=== PATIENT | female | born 1940 | race Caucasian/White ===

== ENCOUNTER 2018-07-30 07:54 | Emergency (ER) | payer OTHER, SELFPAY ==
--- NOTE | 2018-07-30 08:01 | DI.CT.S_ITS ---
PROCEDURE: CT HEAD/BRAIN WO CON INDICATIONS: code stroke speech difficulty tpa TECHNIQUE: Noncontrast 4.5 mm thick angled axial sections acquired from the foramen magnum to the vertex, with coronal and sagittal reformats. For radiation dose reduction, the following was used: automated exposure control, adjustment of mA and/or kV according to patient size. COMPARISON: None. FINDINGS: Image quality: Excellent. CSF spaces: Basal cisterns are patent. No extra-axial fluid collections. The ventricles are symmetric in size and shape. Brain: No intracranial bleeds or masses. There is cerebral volume loss for age, with resultant ventricular and sulcal prominence. There are periventricular and deep white matter chronic small vessel ischemic changes. There is intracranial internal carotid artery atherosclerosis. Skull and face: Calvarium and visualized facial bones appear intact, without suspicious lesions. Sinuses: Visualized sinuses and mastoids are clear. IMPRESSION: No CT evidence of acute intracranial pathology. Findings were reported to Dr. Feliz in the ER at 8:15 AM on 07/30/18. Dictated by: Krzysztof Sinha M.D. on 07/30/2018 at 8:14 Approved by: Krzysztof Sinha M.D. on 07/30/2018 at 8:15
--- NOTE | 2018-07-30 08:06 | ED.NEUROSD ---
HPI - Neuro Symptoms/Deficit General Chief Complaint: Neuro Symptoms/Deficit Stated Complaint: difficulty speaking Time Seen by Provider: 07/30/18 08:01 Source: patient and family Mode of arrival: wheelchair Limitations: no limitations History of Present Illness HPI Narrative: Patient is a 77-year-old female presenting with her who is having difficulty speaking. She was at the breakfast table at 7:30 a.m. in the morning when she was normal and suddenly started talking about Tiffany takes on her speech got slurred. states that his speech actually improved briefly and then got worse again at which point she was brought to the ER. She was able to walk in but felt dizzy and lightheaded and needed some help. She continues to have some slurring of speech but no other focal deficits. She has never had anything like this happen in the past. She does have a history of hypertension and takes hydrochlorothiazide. Last Observed Normal: 07:30 Timing confirmed by: spouse Location: speech History of same: No Severity: mild Context: sudden onset Associated symptoms: denies other symptoms Treatments Prior to Arrival: none Related Data Home Medications Medication Instructions Recorded Confirmed OMEPRAZOLE (PRILOSEC) 10 mg PO QDAY #0 10/06/11 levothyroxine [Synthroid] 75 mcg PO QDAY #0 10/06/11 Allergies Allergy/AdvReac Type Severity Reaction Status Date / Time adhesive Allergy Unknown Unverified 08/10/17 11:44 Review of Systems Review of Systems ROS Unobtainable: All systems reviewed & are unremarkable except as noted in HPI and below Constitutional Denies chills, Denies fever(s), Denies lethargy and Denies weakness Eyes Denies change in vision, Denies eye discharge, Denies irritation and Denies loss of vision ENT Ears, Nose, Mouth, and Throat: Denies change in voice, Denies neck pain and Denies sore throat Cardiovascular Denies chest pain, Denies irregular heart rhythm, Denies lightheadedness, Denies palpitations, Denies dyspnea, Denies dyspnea on exertion and Denies orthopnea Respiratory Denies cough, Denies dyspnea, Denies dyspnea on exertion and Denies wheezing Gastrointestinal Gastrointestinal: Denies abdominal pain, Denies change in bowel habits, Denies diarrhea, Denies nausea and Denies vomiting Genitourinary Denies hematuria, Denies flank pain, Denies urinary incontinence and Denies urinary urgency Musculoskeletal Denies neck pain Integumentary/Breasts Denies pruritus, Denies erythema, Denies rash and Denies wounds Neurologic Reports as per HPI, Denies loss of vision and Denies weakness Endocrine Denies palpitations Allergic/Immunologic Denies wheezing [facility] Medical History Hypertension (Acute) Hypothyroid (Acute) Social History (Updated 07/30/18 @ 08:45 by Crista Feliz DO) marital status: lives independently: Yes Social History marital status: lives independently: Yes Exam Initial Vital Signs Initial Vital Signs: Vital Signs Pulse Rate 75 07/30/18 08:33 Blood Pressure 190/89 H 07/30/18 08:33 Const General: cooperative and well developed Nutritional Appearance: well nourished Orientation: alert, awake, oriented x3 and not confused HENMT Head: normal to inspection and normocephalic Eyes General: appearance normal, both eyes and all related structures Neck Neck: normal visual inspection and full ROM Chest Chest: normal inspection of the chest Resp Effort & Inspection: normal respiratory effort and able to speak in complete sentences Auscultation: clear to auscultation bilaterally, no rhonchi and no wheezes Cardio Rate: regular rate Rhythm: regular rhythm Heart Sounds: S1 normal and S2 normal GI Inspection: normal to inspection Palpation: soft Skin General: no rashes or lesions noted Neuro General: alert, awake, oriented x3, CN's II-XI intact bilaterally and not confused Cognition: normal cognition Speech: abnormal speech (Slurring) Motor: muscle tone normal throughout Sensory Exam: no sensory deficits noted Extrem General: normal to inspection and full ROM Scores NIH Stroke Scale Level of Conciousness: Alert, keenly responsive Ask month/age: Answers both questions correctly. Open/close eyes, close hand: Performs both tasks correctly Best gaze horizontal: Normal Visual roman: No visual loss Facial palsy: Normal symetrical movement Left arm drift: No drift for full 10 sec Right arm drift: No drift for full 10 sec Left leg drift: No drift for full 10 sec Right leg drift: No drift for full 10 sec Limb ataxia: Absent Sensory on face/arms/legs: Normal, no sensory loss Best language: No aphasia, normal Dysarthria: Mild to mod,some slurring Extinction or inattention: No abnormality Total NIH Stroke scale score: 1 Course Orders Ordered: ED Orders 07/30/18 08:01 CT head/brain wo con Stat EKG-12 Lead Stat 07/30/18 08:10 Complete Blood Count AUTO DIFF Stat Comprehensive Metabolic Panel Stat Partial Thromboplastin Time Stat Prothrombin Time INR Stat Troponin & CK Cardiac Panel Stat 07/30/18 08:36 CT angio head and neck Stat 07/30/18 08:46 Urine Culture Stat Urine Microscopic Stat Discontinued Medications Alteplase, Recombinant (Activase) 7 mg 0.09 mg/kg (7 mg) IV NOW ONE Stop: 07/30/18 08:44 Alteplase, Recombinant (Activase) 61 mg 0.81 mg/kg (61 mg) IV NOW ONE Stop: 07/30/18 08:49 Sodium Chloride (Normal Saline 0.9%) 1,000 mls @ 150 mls/hr IV CONT JORGE A Last Admin: 07/30/18 10:12 Dose: Not Given Labetalol HCl (Trandate) 10 mg IV NOW ONE Stop: 07/30/18 08:37 Last Admin: 07/30/18 08:33 Dose: 10 mg Consultations Consultation #1: Dr. Salvador Yang, Neurology at [facility] consult today in regards to tPA. She has a low NIH stroke scale symptoms are waxing and waning. He did a teleconference with the patient. At this time he did recommend tPA. Consultation #2: Dr. Mccall Neurol[facility] as [facility] accepts patient for transfer. Awaiting CTA results Time: 09:08 Vital Signs - 8 hr 07/30/18 08:33 07/30/18 10:39 07/30/18 11:07 Pulse Rate 75 63 69 Respiratory Rate 15 Blood Pressure 190/89 H 161/81 H 156/80 H Pulse Oximetry 98 MDM - Neuro Symptoms/Deficit Lab Data Attestation: I reviewed the patient's lab results. Result diagrams: 07/30/18 08:10 07/30/18 08:10 Lab Results 07/30/18 07/30/18 07/30/18 Range/Units 08:10 08:10 08:10 WBC 7.0 (4.5-11.0) X10^3/uL RBC 5.04 (4.0-5.2) X10^6/uL Hgb 15.8 (12.0-16.0) g/dL Hct 46.2 H (36-46) % MCV 91.5 (80-100) fL MCH 31.3 (26-34) PG MCHC 34.2 (30-36) % RDW 14.1 (11.6-14.8) % Plt Count 292 (150-400) X10^3/uL Neut % (Auto) 59.1 (50-75) % Lymph % (Auto) 27.4 (25-40) % [place] % (Auto) 10.8 (3-14) % Eos % (Auto) 1.6 L (2-4) % Baso % (Auto) 1.1 (0-2) % Neut # (Auto) 4100 (2297-6251) /uL Lymph # (Auto) 1900 (1760-8588) /uL [place] # (Auto) 800 (0-900) /uL Eos # (Auto) 100 (0-450) /uL Baso # (Auto) 100 (0-100) /uL PT 10.9 (10.1-12.7) SECONDS INR 1.0 (0.9-1.3) APTT 29 (26.4-36.2) SECONDS Sodium 138 (137-145) mmol/L Potassium 3.7 (3.4-5.1) mmol/L Chloride 101 (98-107) mmol/L Carbon Dioxide 28 (22-32) mmol/L BUN 13 (7-17) mg/dL Creatinine 0.60 (0.52-1.04) mg/dL Estimated GFR > 60.0 (>60) mL/min BUN/Creatinine Ratio 21.7 (6-22) Glucose 89 (80-110) mg/dL Calcium 9.3 (8.4-10.2) mg/dL Total Bilirubin 0.6 (0.2-1.3) mg/dL AST 27 (14-36) IU/L ALT 24 (9-52) IU/L Alkaline Phosphatase 135 H (38-126) U/L Total Creatine Kinase 164 H (30-135) U/L CK-MB (CK-2) 2.71 H (<2.37) ng/mL CK-MB (CK-2) Rel Index 1.7 (1.5-5.0) % Troponin I < 0.012 (0.01-0.034) ng/mL Total Protein 7.2 (6.3-8.2) g/dL Albumin 4.2 (3.5-5.0) g/dL Globulin 3.0 (1.7-4.1) g/dL Albumin/Globulin Ratio 1.4 (1.0-2.8) Urine RBC (0-5/HPF) Urine WBC (0-5/HPF) Urine Bacteria (None) Ur Culture Indicated? 07/30/18 Range/Units 08:46 WBC (4.5-11.0) X10^3/uL RBC (4.0-5.2) X10^6/uL Hgb (12.0-16.0) g/dL Hct (36-46) % MCV (80-100) fL MCH (26-34) PG MCHC (30-36) % RDW (11.6-14.8) % Plt Count (150-400) X10^3/uL Neut % (Auto) (50-75) % Lymph % (Auto) (25-40) % [place] % (Auto) (3-14) % Eos % (Auto) (2-4) % Baso % (Auto) (0-2) % Neut # (Auto) (9239-8315) /uL Lymph # (Auto) (6714-1651) /uL [place] # (Auto) (0-900) /uL Eos # (Auto) (0-450) /uL Baso # (Auto) (0-100) /uL PT (10.1-12.7) SECONDS INR (0.9-1.3) APTT (26.4-36.2) SECONDS Sodium (137-145) mmol/L Potassium (3.4-5.1) mmol/L Chloride (98-107) mmol/L Carbon Dioxide (22-32) mmol/L BUN (7-17) mg/dL Creatinine (0.52-1.04) mg/dL Estimated GFR (>60) mL/min BUN/Creatinine Ratio (6-22) Glucose (80-110) mg/dL Calcium (8.4-10.2) mg/dL Total Bilirubin (0.2-1.3) mg/dL AST (14-36) IU/L ALT (9-52) IU/L Alkaline Phosphatase (38-126) U/L Total Creatine Kinase (30-135) U/L CK-MB (CK-2) (<2.37) ng/mL CK-MB (CK-2) Rel Index (1.5-5.0) % Troponin I (0.01-0.034) ng/mL Total Protein (6.3-8.2) g/dL Albumin (3.5-5.0) g/dL Globulin (1.7-4.1) g/dL Albumin/Globulin Ratio (1.0-2.8) Urine RBC None seen (0-5/HPF) Urine WBC 5-10/hpf H (0-5/HPF) Urine Bacteria Many (>30) H (None) Ur Culture Indicated? Specimen cultured Point of Care Testing Glucose POC 87 Urine Dip Bedside Urine Glucose Negative Bedside Urine Bilirubin - Negative Bedside Urine Ketone - Negative Urine Specific [place] 1.015 Bedside Urine Occult Blood +/- Bedside Urine pH 7.5 Bedside Urine Protein - Negative Bedside Urine Urobilinogen - Negative Bedside Urine Nitrite - Negative Bedside Urine Leukocytes +++ [address] scan - head: Radiologist's impression: PROCEDURE: CT HEAD/BRAIN WO CON INDICATIONS: code stroke speech difficulty tpa TECHNIQUE: Noncontrast 4.5 mm thick angled axial sections acquired from the foramen magnum to the vertex, with coronal and sagittal reformats. For radiation dose reduction, the following was used: automated exposure control, adjustment of mA and/or kV according to patient size. COMPARISON: None. FINDINGS: Image quality: Excellent. CSF spaces: Basal cisterns are patent. No extra-axial fluid collections. The ventricles are symmetric in size and shape. Brain: No intracranial bleeds or masses. There is cerebral volume loss for age, with resultant ventricular and sulcal prominence. There are periventricular and deep white matter chronic small vessel ischemic changes. There is intracranial internal carotid artery atherosclerosis. Skull and face: Calvarium and visualized facial bones appear intact, without suspicious lesions. Sinuses: Visualized sinuses and mastoids are clear. IMPRESSION: No CT evidence of acute intracranial pathology. Findings were reported to Dr. Feliz in the ER at 8:15 AM on 07/30/18. Dictated by: Krzysztof Sinha M.D. on 07/30/2018 at 8:14 Approved by: Krzysztof Sinha M.D. on 07/30/2018 at 8:15 CTA: Radiologist's impression: PROCEDURE: CT ANGIO HEAD AND NECK INDICATIONS: per maltese speech trouble got tpa TECHNIQUE: Pre-contrast 4.5 mm thick sections acquired from the foramen magnum to the vertex. After the administration of intravenous contrast, 1 mm thick sections acquired from the aortic arch through the [place]. Post-contrast 4.5 mm thick sections then re-acquired from the foramen magnum to the vertex. 3-dimensional egvhhal-gnxwaxdtk-ritihkgpva (MIP) and/or volume rendering reformats were acquired of the central intracranial vasculature and neck separately. COMPARISON: Merged With [facility], CT, CT HEAD/BRAIN WO CON, 07/30/2018, 8:03. FINDINGS: Image quality: Excellent. BRAIN: CSF spaces: Ventricles are normal in size and shape. Basal cisterns are patent. No extra-axial fluid collections. Brain: No midline shift. Age-appropriate atrophy and mild to moderate periventricular white matter chronic ischemic moderate neuropathic changes are again seen. No intracranial bleeds or masses. Junior-white matter interface appears intact. No area of abnormal contrast enhancement Skull and face: Calvarium and facial bones appear intact, without suspicious lesions. Orbits appear normal. Sinuses: Sinuses and mastoids are clear. HEAD CT ANGIOGRAPHY: Anterior circulation: Intracranial internal carotid arteries are normal in size and flow. The flow within the paired anterior cerebral arteries is normal and symmetric. The flow within the middle cerebral arteries is normal and symmetric. The anterior communicating artery is seen. No aneurysms are seen. Posterior circulation: Visualized portions of the vertebral arteries demonstrate normal caliber, and join to form a normal appearing basilar artery. Flow within the posterior cerebral arteries is normal and symmetric. No aneurysms are seen. NECK CT ANGIOGRAPHY: Carotid system: The great vessels demonstrate a conventional anatomy as they arise from the aortic arch. The origins of the common carotid arteries appear patent. The common carotid arteries demonstrate normal caliber and courses. The bifurcation regions are both widely patent. The internal carotid arteries demonstrate normal calibers and courses. Posterior circulation: The origins of the vertebral arteries both appear widely patent. The more superior extracranial portions of both vertebral arteries also demonstrate normal courses and calibers. They join to form a normal appearing basilar artery. Soft tissues: Visualized neck soft tissues demonstrate no suspicious abnormalities. Bones: No suspicious bony lesions. Visualized cervical spine appears normally aligned. IMPRESSION: 1. No CT evidence of acute intracranial bleed, midline shift or mass effect. No gross evidence of acute infarction. No area of abnormal contrast enhancement. Age-appropriate atrophy and mild to moderate periventricular white matter microangiopathic changes. #2. No hemodynamically significant stenosis or aneurysm is seen in the intracranial circulation. #3. No significant stenosis is seen in bilateral carotid arteries. Any quantitative measurements of stenosis were performed using NASCET criteria. Dictated by: Krzysztof Sinha M.D. on 07/30/2018 at 9:34 ECG Data Attestation: I personally reviewed and interpreted this ECG as follows: Prior ECG tracings: available for review Interpretation: Normal sinus rhythm rate 77 DE interval [address] changes slight ST depression noted in V3 no T-wave inversions MDM Narrative Medical decision making narrative: Discussed risks and benefits with both patient and . They agree to tPA. Consent is signed. tPA [id number] tPA [id number] tPA Contraindications for Ischemic Stroke from [employer] on 07/30/2018 All calculations should be rechecked by clinician prior to use RESULT SUMMARY: Patient eligible for tPA. INPUTS: Age ?16 ?> 1 = Yes Clinical diagnosis of ischemic stroke causing neurological deficit ?> 1 = Yes Time of symptom onset <4.5 hours ?> 1 = Yes Intracranial hemorrhage on CT ?> 0 = No Clinical presentation suggests subarachnoid hemorrhage ?> 0 = No Neurosurgery, head trauma, or stroke in past 3 months ?> 0 = No Uncontrolled hypertension (>185 mmHg SBP or >110 mmHg DBP) ?> 0 = No History of intracranial hemorrhage ?> 0 = No Known intracranial arteriovenous malformation, neoplasm, or aneurysm ?> 0 = No Active internal bleeding ?> 0 = No Suspected/confirmed endocarditis ?> 0 = No Known bleeding diathesis ?> 0 = No Abnormal blood glucose (<50 mg/dL) ?> 0 = No Only minor or rapidly improving stroke symptoms ?> 0 = No Major surgery or serious non-head trauma in the previous 14 days ?> 0 = No History of gastrointestinal or urinary tract hemorrhage within 21 days ?> 0 = No Seizure at stroke onset ?> 0 = No Recent arterial puncture at a noncompressible site ?> 0 = No Recent lumbar puncture ?> 0 = No Post myocardial infarction pericarditis ?> 0 = No ?> 0 = No Age >80 years ?> 0 = No History of prior stroke and diabetes ?> 0 = No Any active anticoagulant use (even with INR <1.7) ?> 0 = No <calculator id='[id number]'>NIHSS</calculator> >25 ?> 0 = No CT shows multilobar infarction (hypodensity >1/3 cerebral hemisphere) ?> 0 = No 9:45 a.m. patient feels like her lips are feeling better. She still has some speech difficulty no headache. overall from my perspective patient is the same. Patient has been accepted at [facility] she will be going by ambulance, and is hemodynamically stable. Critical Care Time Critical Care Time: Yes Total Critical Care Time: 45 Attestation: The high probability of a clinically significant, sudden or life threatening deterioration of the neurovascular system(s) required my full and direct attention, intervention and personal management. The aggregate critical care time was 45 minutes. This time is in addition to time spent performing reported procedures but includes the following: x Data Review and interpretation x Patient assessment and monitoring of vital signs x Documentation x Medication orders and management Discharge Plan Departure Patient Disposition: [facility] Clinical Impression: Cerebrovascular accident Qualifiers: CVA mechanism: unspecified Qualified Code(s): I63.9 - Cerebral infarction, unspecified Discharge Date/Time: 07/30/18 10:45 Interventions: ED Discharge Assessment Last Done: 07/30/18 11:07 Prescriptions: No Action levothyroxine [Synthroid] 75 MCG tablet 75 mcg PO QDAY Qty: 0 RF: 0 OMEPRAZOLE (PRILOSEC) 10 mg PO QDAY Qty: 0 RF: 0 Referrals: Carl Alexandre MD [Primary Care Provider] -
--- NOTE | 2018-07-30 08:10 | ED_ITS ---
HPI - Neuro Symptoms/Deficit General Chief Complaint: Neuro Symptoms/Deficit Stated Complaint: difficulty speaking Time Seen by Provider: 07/30/18 08:01 Source: patient and family Mode of arrival: wheelchair Limitations: no limitations History of Present Illness HPI Narrative: Patient is a 77-year-old female presenting with her who is having difficulty speaking. She was at the breakfast table at 7:30 a.m. in the morning when she was normal and suddenly started talking about Tiffany takes on her speech got slurred. states that his speech actually improved briefly and then got worse again at which point she was brought to the ER. She was able to walk in but felt dizzy and lightheaded and needed some help. She continues to have some slurring of speech but no other focal deficits. She has never had anything like this happen in the past. She does have a history of hypertension and takes hydrochlorothiazide. Last Observed Normal: 07:30 Timing confirmed by: spouse Location: speech History of same: No Severity: mild Context: sudden onset Associated symptoms: denies other symptoms Treatments Prior to Arrival: none Related Data Home Medications Medication Instructions Recorded Confirmed OMEPRAZOLE (PRILOSEC) 10 mg PO QDAY #0 10/06/11 levothyroxine [Synthroid] 75 mcg PO QDAY #0 10/06/11 Allergies Allergy/AdvReac Type Severity Reaction Status Date / Time adhesive Allergy Unknown Unverified 08/10/17 11:44 Review of Systems Review of Systems ROS Unobtainable: All systems reviewed & are unremarkable except as noted in HPI and below Constitutional Denies chills, Denies fever(s), Denies lethargy and Denies weakness Eyes Denies change in vision, Denies eye discharge, Denies irritation and Denies loss of vision ENT Ears, Nose, Mouth, and Throat: Denies change in voice, Denies neck pain and Denies sore throat Cardiovascular Denies chest pain, Denies irregular heart rhythm, Denies lightheadedness, Denies palpitations, Denies dyspnea, Denies dyspnea on exertion and Denies orthopnea Respiratory Denies cough, Denies dyspnea, Denies dyspnea on exertion and Denies wheezing Gastrointestinal Gastrointestinal: Denies abdominal pain, Denies change in bowel habits, Denies diarrhea, Denies nausea and Denies vomiting Genitourinary Denies hematuria, Denies flank pain, Denies urinary incontinence and Denies urinary urgency Musculoskeletal Denies neck pain Integumentary/Breasts Denies pruritus, Denies erythema, Denies rash and Denies wounds Neurologic Reports as per HPI, Denies loss of vision and Denies weakness Endocrine Denies palpitations Allergic/Immunologic Denies wheezing [facility] Medical History Hypertension (Acute) Hypothyroid (Acute) Social History (Updated 07/30/18 @ 08:45 by Crista Feliz DO) marital status: lives independently: Yes Social History marital status: lives independently: Yes Exam Initial Vital Signs Initial Vital Signs: Vital Signs Pulse Rate 75 07/30/18 08:33 Blood Pressure 190/89 H 07/30/18 08:33 Const General: cooperative and well developed Nutritional Appearance: well nourished Orientation: alert, awake, oriented x3 and not confused HENMT Head: normal to inspection and normocephalic Eyes General: appearance normal, both eyes and all related structures Neck Neck: normal visual inspection and full ROM Chest Chest: normal inspection of the chest Resp Effort & Inspection: normal respiratory effort and able to speak in complete sentences Auscultation: clear to auscultation bilaterally, no rhonchi and no wheezes Cardio Rate: regular rate Rhythm: regular rhythm Heart Sounds: S1 normal and S2 normal GI Inspection: normal to inspection Palpation: soft Skin General: no rashes or lesions noted Neuro General: alert, awake, oriented x3, CN's II-XI intact bilaterally and not confused Cognition: normal cognition Speech: abnormal speech (Slurring) Motor: muscle tone normal throughout Sensory Exam: no sensory deficits noted Extrem General: normal to inspection and full ROM Scores NIH Stroke Scale Level of Conciousness: Alert, keenly responsive Ask month/age: Answers both questions correctly. Open/close eyes, close hand: Performs both tasks correctly Best gaze horizontal: Normal Visual roman: No visual loss Facial palsy: Normal symetrical movement Left arm drift: No drift for full 10 sec Right arm drift: No drift for full 10 sec Left leg drift: No drift for full 10 sec Right leg drift: No drift for full 10 sec Limb ataxia: Absent Sensory on face/arms/legs: Normal, no sensory loss Best language: No aphasia, normal Dysarthria: Mild to mod,some slurring Extinction or inattention: No abnormality Total NIH Stroke scale score: 1 Course Orders Ordered: ED Orders 07/30/18 08:01 CT head/brain wo con Stat EKG-12 Lead Stat 07/30/18 08:10 Complete Blood Count AUTO DIFF Stat Comprehensive Metabolic Panel Stat Partial Thromboplastin Time Stat Prothrombin Time INR Stat Troponin & CK Cardiac Panel Stat 07/30/18 08:36 CT angio head and neck Stat 07/30/18 08:46 Urine Culture Stat Urine Microscopic Stat Discontinued Medications Alteplase, Recombinant (Activase) 7 mg 0.09 mg/kg (7 mg) IV NOW ONE Stop: 07/30/18 08:44 Alteplase, Recombinant (Activase) 61 mg 0.81 mg/kg (61 mg) IV NOW ONE Stop: 07/30/18 08:49 Sodium Chloride (Normal Saline 0.9%) 1,000 mls @ 150 mls/hr IV CONT JORGE A Last Admin: 07/30/18 10:12 Dose: Not Given Labetalol HCl (Trandate) 10 mg IV NOW ONE Stop: 07/30/18 08:37 Last Admin: 07/30/18 08:33 Dose: 10 mg Consultations Consultation #1: Dr. Salvador Yang, Neurology at [facility] consult today in regards to tPA. She has a low NIH stroke scale symptoms are waxing and waning. He did a teleconference with the patient. At this time he did recommend tPA. Consultation #2: Dr. Mccall Neurolangelito as [facility] accepts patient for transfer. Awaiting CTA results Time: 09:08 Vital Signs - 8 hr 07/30/18 08:33 07/30/18 10:39 07/30/18 11:07 Pulse Rate 75 63 69 Respiratory Rate 15 Blood Pressure 190/89 H 161/81 H 156/80 H Pulse Oximetry 98 MDM - Neuro Symptoms/Deficit Lab Data Attestation: I reviewed the patient's lab results. Result diagrams: 07/30/18 08:10 07/30/18 08:10 Lab Results 07/30/18 07/30/18 07/30/18 Range/Units 08:10 08:10 08:10 WBC 7.0 (4.5-11.0) X10^3/uL RBC 5.04 (4.0-5.2) X10^6/uL Hgb 15.8 (12.0-16.0) g/dL Hct 46.2 H (36-46) % MCV 91.5 (80-100) fL MCH 31.3 (26-34) PG MCHC 34.2 (30-36) % RDW 14.1 (11.6-14.8) % Plt Count 292 (150-400) X10^3/uL Neut % (Auto) 59.1 (50-75) % Lymph % (Auto) 27.4 (25-40) % [place] % (Auto) 10.8 (3-14) % Eos % (Auto) 1.6 L (2-4) % Baso % (Auto) 1.1 (0-2) % Neut # (Auto) 4100 (4913-8802) /uL Lymph # (Auto) 1900 (8441-3838) /uL Jennings # (Auto) 800 (0-900) /uL Eos # (Auto) 100 (0-450) /uL Baso # (Auto) 100 (0-100) /uL PT 10.9 (10.1-12.7) SECONDS INR 1.0 (0.9-1.3) APTT 29 (26.4-36.2) SECONDS Sodium 138 (137-145) mmol/L Potassium 3.7 (3.4-5.1) mmol/L Chloride 101 (98-107) mmol/L Carbon Dioxide 28 (22-32) mmol/L BUN 13 (7-17) mg/dL Creatinine 0.60 (0.52-1.04) mg/dL Estimated GFR > 60.0 (>60) mL/min BUN/Creatinine Ratio 21.7 (6-22) Glucose 89 (80-110) mg/dL Calcium 9.3 (8.4-10.2) mg/dL Total Bilirubin 0.6 (0.2-1.3) mg/dL AST 27 (14-36) IU/L ALT 24 (9-52) IU/L Alkaline Phosphatase 135 H (38-126) U/L Total Creatine Kinase 164 H (30-135) U/L CK-MB (CK-2) 2.71 H (<2.37) ng/mL CK-MB (CK-2) Rel Index 1.7 (1.5-5.0) % Troponin I < 0.012 (0.01-0.034) ng/mL Total Protein 7.2 (6.3-8.2) g/dL Albumin 4.2 (3.5-5.0) g/dL Globulin 3.0 (1.7-4.1) g/dL Albumin/Globulin Ratio 1.4 (1.0-2.8) Urine RBC (0-5/HPF) Urine WBC (0-5/HPF) Urine Bacteria (None) Ur Culture Indicated? 07/30/18 Range/Units 08:46 WBC (4.5-11.0) X10^3/uL RBC (4.0-5.2) X10^6/uL Hgb (12.0-16.0) g/dL Hct (36-46) % MCV (80-100) fL MCH (26-34) PG MCHC (30-36) % RDW (11.6-14.8) % Plt Count (150-400) X10^3/uL Neut % (Auto) (50-75) % Lymph % (Auto) (25-40) % [place] % (Auto) (3-14) % Eos % (Auto) (2-4) % Baso % (Auto) (0-2) % Neut # (Auto) (9582-7434) /uL Lymph # (Auto) (8479-6587) /uL Jennings # (Auto) (0-900) /uL Eos # (Auto) (0-450) /uL Baso # (Auto) (0-100) /uL PT (10.1-12.7) SECONDS INR (0.9-1.3) APTT (26.4-36.2) SECONDS Sodium (137-145) mmol/L Potassium (3.4-5.1) mmol/L Chloride (98-107) mmol/L Carbon Dioxide (22-32) mmol/L BUN (7-17) mg/dL Creatinine (0.52-1.04) mg/dL Estimated GFR (>60) mL/min BUN/Creatinine Ratio (6-22) Glucose (80-110) mg/dL Calcium (8.4-10.2) mg/dL Total Bilirubin (0.2-1.3) mg/dL AST (14-36) IU/L ALT (9-52) IU/L Alkaline Phosphatase (38-126) U/L Total Creatine Kinase (30-135) U/L CK-MB (CK-2) (<2.37) ng/mL CK-MB (CK-2) Rel Index (1.5-5.0) % Troponin I (0.01-0.034) ng/mL Total Protein (6.3-8.2) g/dL Albumin (3.5-5.0) g/dL Globulin (1.7-4.1) g/dL Albumin/Globulin Ratio (1.0-2.8) Urine RBC None seen (0-5/HPF) Urine WBC 5-10/hpf H (0-5/HPF) Urine Bacteria Many (>30) H (None) Ur Culture Indicated? Specimen cultured Point of Care Testing Glucose POC 87 Urine Dip Bedside Urine Glucose Negative Bedside Urine Bilirubin - Negative Bedside Urine Ketone - Negative Urine Specific [place] 1.015 Bedside Urine Occult Blood +/- Bedside Urine pH 7.5 Bedside Urine Protein - Negative Bedside Urine Urobilinogen - Negative Bedside Urine Nitrite - Negative Bedside Urine Leukocytes +++ [address] scan - head: Radiologist's impression: PROCEDURE: CT HEAD/BRAIN WO CON INDICATIONS: code stroke speech difficulty tpa TECHNIQUE: Noncontrast 4.5 mm thick angled axial sections acquired from the foramen magnum to the vertex, with coronal and sagittal reformats. For radiation dose reduction, the following was used: automated exposure control, adjustment of mA and/or kV according to patient size. COMPARISON: None. FINDINGS: Image quality: Excellent. CSF spaces: Basal cisterns are patent. No extra-axial fluid collections. The ventricles are symmetric in size and shape. Brain: No intracranial bleeds or masses. There is cerebral volume loss for age, with resultant ventricular and sulcal prominence. There are periventricular and deep white matter chronic small vessel ischemic changes. There is intracranial internal carotid artery atherosclerosis. Skull and face: Calvarium and visualized facial bones appear intact, without suspicious lesions. Sinuses: Visualized sinuses and mastoids are clear. IMPRESSION: No CT evidence of acute intracranial pathology. Findings were reported to Dr. Feliz in the ER at 8:15 AM on 07/30/18. Dictated by: Krzysztof Sinha M.D. on 07/30/2018 at 8:14 Approved by: Krzysztof Sinha M.D. on 07/30/2018 at 8:15 CTA: Radiologist's impression: PROCEDURE: CT ANGIO HEAD AND NECK INDICATIONS: per hebrew speech trouble got tpa TECHNIQUE: Pre-contrast 4.5 mm thick sections acquired from the foramen magnum to the vertex. After the administration of intravenous contrast, 1 mm thick sections acquired from the aortic arch through the [place]. Post-contrast 4.5 mm thick sections then re- acquired from the foramen magnum to the vertex. 3-dimensional zbiwqda-ocgjobqjt-mmvgy ction (MIP) and/or volume rendering reformats were acquired of the central intracranial vasculature and neck separately. COMPARISON: [facility], CT, CT HEAD/BRAIN WO CON, 07/30/2018, 8:03. FINDINGS: Image quality: Excellent. BRAIN: CSF spaces: Ventricles are normal in size and shape. Basal cisterns are patent. No extra-axial fluid collections. Brain: No midline shift. Age-appropriate atrophy and mild to moderate periventricular white matter chronic ischemic moderate neuropathic changes are again seen. No intracranial bleeds or masses. Junior-white matter interface appears intact. No area of abnormal contrast enhancement Skull and face: Calvarium and facial bones appear intact, without suspicious lesions. Orbits appear normal. Sinuses: Sinuses and mastoids are clear. HEAD CT ANGIOGRAPHY: Anterior circulation: Intracranial internal carotid arteries are normal in size and flow. The flow within the paired anterior cerebral arteries is normal and symmetric. The flow within the middle cerebral arteries is normal and symmetric. The ant erior communicating artery is seen. No aneurysms are seen. Posterior circulation: Visualized portions of the vertebral arteries demonstrate normal caliber, and join to form a normal appearing basilar artery. Flow within the posterior cerebral arteries is normal and symmetric. No aneurysms are seen. NECK CT ANGIOGRAPHY: Carotid system: The great vessels demonstrate a conventional anatomy as they arise from the aortic arch. The origins of the common carotid arteries appear patent. The common carotid arteries demonstrate normal caliber and courses. The bifurcation regions are both widely patent. The internal carotid arteries demonstrate normal calibers and courses. Posterior circulation: The origins of the vertebral arteries both appear widely patent. The more superior extracranial portions of both vertebral arteries also demonstrate normal courses and calibers. They join to form a normal appearing basilar artery. Soft tissues: Visualized neck soft tissues demonstrate no suspicious abnormalities. Bones: No suspicious bony lesions. Visualized cervical spine appears normally aligned. IMPRESSION: 1. No CT evidence of acute intracranial bleed, midline shift or mass effect. No gross evidence of acute infarction. No area of abnormal contrast enhancement. Age- appropriate atrophy and mild to moderate periventricular white matter microangiopathic changes. #2. No hemodynamically significant stenosis or aneurysm is seen in the intracran ial circulation. #3. No significant stenosis is seen in bilateral carotid arteries. Any quantitative measurements of stenosis were performed using NASCET criteria. Dictated by: Krzysztof Sinha M.D. on 07/30/2018 at 9:34 ECG Data Attestation: I personally reviewed and interpreted this ECG as follows: Prior ECG tracings: available for review Interpretation: Normal sinus rhythm rate 77 AL interval [address] slight ST depression noted in V3 no T-wave inversions MDM Narrative Medical decision making narrative: Discussed risks and benefits with both patient and . They agree to tPA. Consent is signed. tPA [id number] tPA [id number] tPA Contraindications for Ischemic Stroke from [facility] on 07/30/2018 All calculations should be rechecked by clinician prior to use RESULT SUMMARY: Patient eligible for tPA. INPUTS: Age ?16 ?> 1 = Yes Clinical diagnosis of ischemic stroke causing neurological deficit ?> 1 = Yes Time of symptom onset <4.5 hours ?> 1 = Yes Intracranial hemorrhage on CT ?> 0 = No Clinical presentation suggests subarachnoid hemorrhage ?> 0 = No Neurosurgery, head trauma, or stroke in past 3 months ?> 0 = No Uncontrolled hypertension (>185 mmHg SBP or >110 mmHg DBP) ?> 0 = No History of intracranial hemorrhage ?> 0 = No Known intracranial arteriovenous malformation, neoplasm, or aneurysm ?> 0 = No Active internal bleeding ?> 0 = No Suspected/confirmed endocarditis ?> 0 = No Known bleeding diathesis ?> 0 = No Abnormal blood glucose (<50 mg/dL) ?> 0 = No Only minor or rapidly improving stroke symptoms ?> 0 = No Major surgery or serious non-head trauma in the previous 14 days ?> 0 = No History of gastrointestinal or urinary tract hemorrhage within 21 days ?> 0 = No Seizure at stroke onset ?> 0 = No Recent arterial puncture at a noncompressible site ?> 0 = No Recent lumbar puncture ?> 0 = No Post myocardial infarction pericarditis ?> 0 = No ?> 0 = No Age >80 years ?> 0 = No History of prior stroke and diabetes ?> 0 = No Any active anticoagulant use (even with INR <1.7) ?> 0 = No <calculator id='[id number]'>NIHSS</calculator> >25 ?> 0 = No CT shows multilobar infarction (hypodensity >1/3 cerebral hemisphere) ?> 0 = No 9:45 a.m. patient feels like her lips are feeling better. She still has some speech difficulty no headache. overall from my perspective patient is the same. Patient has been accepted at [facility] she will be going by ambulance, and is hemodynamically stable. Critical Care Time Critical Care Time: Yes Total Critical Care Time: 45 Attestation: The high probability of a clinically significant, sudden or life threatening deterioration of the neurovascular system(s) required my full and direct attention, intervention and personal management. The aggregate critical care time was 45 minutes. This time is in addition to time spent performing reported procedures but includes the following: x Data Review and interpretation x Patient assessment and monitoring of vital signs x Documentation x Medication orders and management Discharge Plan Departure Patient Disposition: [facility] Clinical Impression: Cerebrovascular accident Qualifiers: CVA mechanism: unspecified Qualified Code(s): I63.9 - Cerebral infarction, unspecified Discharge Date/Time: 07/30/18 10:45 Interventions: ED Discharge Assessment Last Done: 07/30/18 11:07 Prescriptions: No Action levothyroxine [Synthroid] 75 MCG tablet 75 mcg PO QDAY Qty: 0 RF: 0 OMEPRAZOLE (PRILOSEC) 10 mg PO QDAY Qty: 0 RF: 0 Referrals: Carl Alexandre MD [Primary Care Provider] -
[2018-07-30 08:19] LABS: Add Manual Diff / Slide Review NO; Basophils Absolute Auto 100 /uL (0-100); Basophils Percent Auto 1.1 % (0-2); Eosinophils Absolute Auto 100 /uL (0-450); Eosinophils Percent Auto 1.6 % (2-4); Hematocrit 46.2 % (36-46); Hemoglobin 15.8 g/dL (12.0-16.0); Lymphocytes Absolute Auto 1900 /uL (1100-4500); Lymphocytes Percent Auto 27.4 % (25-40); Mean Corpuscular HGB Conc 34.2 % (30-36); Mean Corpuscular Hemoglobin 31.3 PG (26-34); Mean Corpuscular Volume 91.5 fL (80-100); Monocytes Absolute Auto 800 /uL (0-900); Monocytes Percent Auto 10.8 % (3-14); Neutrophils Absolute Auto 4100 /uL (1500-7000); Neutrophils Percent Auto 59.1 % (50-75); Platelet Count 292 X10^3/uL (150-400); Red Blood Cell Count 5.04 X10^6/uL (4.0-5.2); Red Cell Distribution Width 14.1 % (11.6-14.8)
[2018-07-30 08:25] LABS: Prothrombin Time 10.9 SECONDS (10.1-12.7)
[2018-07-30 08:28] LABS: PTT Partial Thromboplastin Tim 29 SECONDS (26.4-36.2)
[2018-07-30 08:29] LABS: Alanine Aminotransferase 24 IU/L (9-52); Albumin 4.2 g/dL (3.5-5.0); Albumin Globulin Ratio 1.4 (1.0-2.8); Alkaline Phosphatase 135 U/L (38-126); Aspartate Aminotransferase 27 IU/L (14-36); BUN Creatinine Ratio 21.7 (6-22); Bilirubin Total 0.6 mg/dL (0.2-1.3); Blood Urea Nitrogen 13 mg/dL (7-17); Calcium 9.3 mg/dL (8.4-10.2); Carbon Dioxide 28 mmol/L (22-32); Chloride 101 mmol/L (98-107); Creatine Kinase 164 U/L (30-135); Estimated Glomerular Filt Rate > 60.0 mL/min (>60); Glucose 89 mg/dL (80-110); HEMOLYSIS 16 (0-50); Potassium 3.7 mmol/L (3.4-5.1); Sodium 138 mmol/L (137-145); Total Protein 7.2 g/dL (6.3-8.2)
[2018-07-30 08:33] VITALS: BP 190/89; PULSE 75
[2018-07-30] MEDS: LABETALOL 20 MG/4 ML SYRINGE 10 MG IV (08:33)
--- NOTE | 2018-07-30 08:36 | DI.CT.S_ITS ---
PROCEDURE: CT ANGIO HEAD AND NECK INDICATIONS: per turkish speech trouble got tpa TECHNIQUE: Pre-contrast 4.5 mm thick sections acquired from the foramen magnum to the vertex. After the administration of intravenous contrast, 1 mm thick sections acquired from the aortic arch through the [place]. Post-contrast 4.5 mm thick sections then re-acquired from the foramen magnum to the vertex. 3-dimensional lwihafu-ncvwdezyk-wnefrzzpuy (MIP) and/or volume rendering reformats were acquired of the central intracranial vasculature and neck separately. COMPARISON: [facility], CT, CT HEAD/BRAIN WO CON, 07/30/2018, 8:03. FINDINGS: Image quality: Excellent. BRAIN: CSF spaces: Ventricles are normal in size and shape. Basal cisterns are patent. No extra-axial fluid collections. Brain: No midline shift. Age-appropriate atrophy and mild to moderate periventricular white matter chronic ischemic moderate neuropathic changes are again seen. No intracranial bleeds or masses. Junior-white matter interface appears intact. No area of abnormal contrast enhancement Skull and face: Calvarium and facial bones appear intact, without suspicious lesions. Orbits appear normal. Sinuses: Sinuses and mastoids are clear. HEAD CT ANGIOGRAPHY: Anterior circulation: Intracranial internal carotid arteries are normal in size and flow. The flow within the paired anterior cerebral arteries is normal and symmetric. The flow within the middle cerebral arteries is normal and symmetric. The anterior communicating artery is seen. No aneurysms are seen. Posterior circulation: Visualized portions of the vertebral arteries demonstrate normal caliber, and join to form a normal appearing basilar artery. Flow within the posterior cerebral arteries is normal and symmetric. No aneurysms are seen. NECK CT ANGIOGRAPHY: Carotid system: The great vessels demonstrate a conventional anatomy as they arise from the aortic arch. The origins of the common carotid arteries appear patent. The common carotid arteries demonstrate normal caliber and courses. The bifurcation regions are both widely patent. The internal carotid arteries demonstrate normal calibers and courses. Posterior circulation: The origins of the vertebral arteries both appear widely patent. The more superior extracranial portions of both vertebral arteries also demonstrate normal courses and calibers. They join to form a normal appearing basilar artery. Soft tissues: Visualized neck soft tissues demonstrate no suspicious abnormalities. Bones: No suspicious bony lesions. Visualized cervical spine appears normally aligned. IMPRESSION: 1. No CT evidence of acute intracranial bleed, midline shift or mass effect. No gross evidence of acute infarction. No area of abnormal contrast enhancement. Age-appropriate atrophy and mild to moderate periventricular white matter microangiopathic changes. #2. No hemodynamically significant stenosis or aneurysm is seen in the intracranial circulation. #3. No significant stenosis is seen in bilateral carotid arteries. Any quantitative measurements of stenosis were performed using NASCET criteria. Dictated by: Krzysztof Sinha M.D. on 07/30/2018 at 9:34 Approved by: Krzysztof Sinha M.D. on 07/30/2018 at 9:37
[2018-07-30 08:41] LABS: Troponin I < 0.012 ng/mL (0.01-0.034)
[2018-07-30 08:44] LABS: CKMB % Relative Index 1.7 % (1.5-5.0); Creatine Kinase MB 2.71 ng/mL (<2.37)
[2018-07-30] MEDS: ALTEPLASE 100 MG VIAL 61 MG IV (08:45)
[2018-07-30] MEDS: ALTEPLASE 100 MG VIAL 7 MG IV (08:45)
[2018-07-30 10:00] LABS: RBC Urine None Seen (0-5/HPF)
[2018-07-30 10:08] LABS: Bacteria Urine Many (>30); Culture Indicated Urine Specimen Cultured; WBC Urine 5-10/HPF (0-5/HPF)
[2018-07-30 10:39] VITALS: BP 161/81; PULSE 63
[2018-07-30 11:07] VITALS: BP 156/80; PULSE 69; RESP 15; O2SAT 98
== END 2018-07-30 10:45 | disposition short-term general hospital (02) ==
PROVIDERS: Emergency Provider Emergency Medicine; PCP Internal Medicine
DX: I63.9 Cerebral infarction, unspecified (principal)
CPT/HCPCS: 36591; 70450; 70496; 70498; 80053; 81003; 81015; 82550; 82553; 82962; 84484; 85025; 85610; 85730; 87077; 87086; 87186; 93005; 96374; 96375; 99282; 99285; J2997; Q9967

== ENCOUNTER → 2020-08-01 18:38 | Outpatient (ROUT) | payer OTHER, SELFPAY ==
[2020-08-01 19:20] LABS: Aspartate Aminotransferase 28 IU/L (14-36); BUN Creatinine Ratio 20.8 (6-22); Blood Urea Nitrogen 11 mg/dL (7-17); Calcium 9.3 mg/dL (8.4-10.2); Carbon Dioxide 28 mmol/L (22-32); Chloride 107 mmol/L (98-107); Cholesterol 124 mg/dL (140-199); Estimated Glomerular Filt Rate > 60.0 mL/min (>60); Glucose 87 mg/dL (80-110); HDL Cholesterol 59 mg/dL (40-60); HEMOLYSIS < 15 (0-50); LDL Cholesterol Calculated 50 mg/dL (<100); Potassium 4.4 mmol/L (3.4-5.1); Sodium 140 mmol/L (137-145); Triglycerides 76 mg/dL (35-150)
[2020-08-01 19:42] LABS: TSH w/ Reflex to FT4 0.61 uIU/mL (0.47-4.68)
== END ==
PROVIDERS: PCP Internal Medicine; Visit Provider Internal Medicine
DX: I10 Essential (primary) hypertension (principal); E78.2 Mixed hyperlipidemia; E03.9 Hypothyroidism, unspecified
CPT/HCPCS: 80048; 80061; 84443; 84450

== ENCOUNTER 2020-08-25 07:43 | Observation (INO) | payer OTHER, SELFPAY ==
[2020-08-25] VITALS (9 sets, daily range): BP systolic 151–193; BP diastolic 78–101; PULSE 64–81; RESP 16–30; TEMP 36.2–36.9; O2SAT 94–98; BMI 24.2
--- NOTE | 2020-08-25 | DI.ECHO.S_ITS ---
[facility] +---------+ : : [address] : : : : [id number] : : : : Phone: [phone] Echocardiogram Report + + :Name: GIANNA CARRION Study Date: 08/25/2020 Height: 65 in : :[facility] ReadingLocation: Weight: 145 lb : : Gender: Female BSA: 1.7 m2 : :: 1940 Age: 79 yrs BP: 186/101 mmHg: :Reason For Study: ACUTE STROKE : :Ordering Physician: GIANNI, : :GABY Performed By: Dina Abel : :Referring: GABY ARCHER : + + Interpretation Summary The left ventricle is normal in size and wall thickness. Left ventricular systolic function appears normal without focal wall motion abnormalities. The ejection fraction is estimated to be 60-65%. This is unchanged compared to the previous study. Diastolic parameters suggest a relaxation abnormality of the left ventricle, consistent with probable normal filling pressures. The right ventricle is normal in size and function. The right ventricular systolic pressure is estimated to be at least 33 mmHg based on an estimated right atrial pressure of 3 mm Hg. The left atrial size is normal. Right atrial size is normal. There is bileaflet moderate mitral valve prolapse. There is mild mitral valve prolapse. There is moderate mitral regurgitation. This is unchanged compared to the previous study. There is no other significant valvular heart disease. The aortic root is mildly dilated. The ascending aorta is mild-moderately enlarged. No significant changes since 12/26/2019. No obvious evidence for acute stroke. Procedure: A two-dimensional transthoracic echocardiogram with color flow and Doppler was performed. The study quality was technically adequate. Comparison is made with the echocardiogram of 12/26/2019. The patient was in sinus rhythm with heart rates between 63-83 bpm during the exam. Left Ventricle: The left ventricle is normal in size and wall thickness. Left ventricular systolic function appears normal without focal wall motion abnormalities. The ejection fraction is estimated to be 60-65%. This is unchanged compared to the previous study. Diastolic parameters suggest a relaxation abnormality of the left ventricle, consistent with probable normal filling pressures. Right Ventricle: The right ventricle is normal in size and function. Atria: The left atrial size is normal. Right atrial size is normal. There is no Doppler evidence for an interatrial shunt. Mitral Valve: The mitral valve leaflets appear mildly thickened, but open well. There is bileaflet moderate mitral valve prolapse. There is mild mitral valve prolapse. There is moderate mitral regurgitation. This is unchanged compared to the previous study. Aortic Valve: The aortic valve is trileaflet. The aortic valve opens well. There is no aortic valve stenosis. There is trace aortic regurgitation. Tricuspid Valve: The tricuspid valve leaflets are thin and pliable. There is mild tricuspid regurgitation. The right ventricular systolic pressure is estimated to be at least 33 mmHg based on an estimated right atrial pressure of 3 mm Hg. Pulmonic Valve: The pulmonic valve leaflets are thin and pliable; valve motion is normal. There is trace pulmonic regurgitation. There is no other significant valvular heart disease. Great Vessels: The aortic root is mildly dilated. The ascending aorta is mild-moderately enlarged. The IVC is of normal diameter and collapses greater than 50% with a sniff. This suggests a low right atrial pressure of 3 mm Hg. Pericardium/ Pleura There is no pericardial effusion. There is no pleural effusion. MMode/2D Measurements & Calculations LVIDd: 5.1 cm LVOT diam: 2.0 cm LVIDs: 3.0 cm Ao root diam: 3.4 cm FS: 41.8 % asc Aorta Diam: 4.0 cm IVSd: 0.97 cm LVPWd: 1.1 cm LV melgoza. diameter/BSA (cm/m^2): 3.0 LV sys. diameter/BSA (cm/m^2): 1.7 LA A2 area: 23.3 cm2 RA long axis: 5.0 cm LA A4 area: 12.3 cm2 RA area: 14.1 cm2 LA length (vol): 4.6 cm RA vol: 33.8 ml LA vol: 52.1 ml RA : 19.6 ml/m2 LA vol index: 30.2 ml/m2 IVC diam: 1.1 cm RVD1 (basal): 3.0 cm TAPSE: 1.9 cm Doppler Measurements & Calculations Ao V2 max: 130.4 cm/sec LVOT Max Romulo: 107.2 cm/sec Ao V2 mean: 83.2 cm/sec LV V1 max P.6 mmHg Ao max P.8 mmHg LV V1 VTI: 19.8 cm Ao mean P.1 mmHg AMIRAH(I,D): 2.4 cm2 Ao V2 VTI: 27.2 cm AMIRAH(V,D): 2.7 cm2 sev ratio: 0.73 AMIRAH indexed to BSA (cm^2/m^2): 1.4 MV E max romulo: 48.8 cm/sec TR max romulo: 275.7 cm/sec MV A max romulo: 81.9 cm/sec TR max P.4 mmHg MV E/A: 0.60 PA V2 max: 88.3 cm/sec Med Peak E' Romulo: 4.1 cm/sec PA V2 mean: 62.6 cm/sec E/E' med: 11.9 PA mean P.7 mmHg Lat Peak E' Romulo: 5.9 cm/sec PA pr(Accel): 43.0 mmHg E/E' lat: 8.3 E/e' average: 10.1 MV dec time: 0.24 sec SV(LVOT): 64.8 ml Reading Physician:04:30 PM
--- NOTE | 2020-08-25 07:45 | DI.CT.S_ITS ---
PROCEDURE: CT STROKE INDICATIONS: slurred speach TECHNIQUE: Noncontrast 4.5 mm thick angled axial sections acquired from the foramen magnum to the vertex, with coronal reformats. For radiation dose reduction, the following was used: automated exposure control, adjustment of mA and/or kV according to patient size. COMPARISON: None. FINDINGS: Image quality: Excellent. CSF spaces: Basal cisterns are patent. No extra-axial fluid collections. The ventricles are symmetric in size and shape. Brain: No intracranial bleeds or masses. There is cerebral volume loss for age, with resultant ventricular and sulcal prominence. There are periventricular and deep white matter chronic small vessel ischemic changes. Chronic, small left cerebellar hemisphere lacunar infarct. There is intracranial internal carotid artery atherosclerosis. Skull and face: Calvarium and visualized facial bones appear intact, without suspicious lesions. Sinuses: Visualized sinuses and mastoids are clear. IMPRESSION: 1. No acute intracranial disease process. 2. Findings discussed with Dr. Pastrana on August 25, 2020 at 7:59 a.m. This study fulfills neurological imaging criteria for inclusion or exclusion of acute stroke therapies based on available published neurological guidelines. Dictated by: Nisha Ramirez MD, PhD on 08/25/2020 at 7:58 Approved by: Nisha Ramirez MD, PhD on 08/25/2020 at 8:00
--- NOTE | 2020-08-25 07:52 | ED.GENADULT ---
HPI - General Adult General Chief complaint: Neuro Symptoms/Deficit Stated complaint: thinks she had a stroke Time Seen by Provider: 08/25/20 07:45 Source: patient and family () Mode of arrival: Ambulatory Limitations: no limitations History of Present Illness HPI narrative: Initial reports from the states that the patient did have a stroke greater than 1 year ago for which she received tPA. She is not on anticoagulation.. Code stroke called upon arrival. states that approximately 1-1.5 hours prior to arrival here in the emergency department he talk with his and she was having problems speaking. He described this as ?pronunciation ?difficulties. He also stated that she thought that she was having problems speaking. Apparently this is very similar symptoms to the event where she had a stroke greater than 1 year ago. He states that technically the last time he saw her normal was last evening. No one else spoke with her this morning. She was standing making breakfast this morning when the events were happening. Walking into the emergency department she had to hold onto him because of some weakness. Patient states that this morning she noticed that she was having problems saying words. She felt like she would get them out but they were just slurring. She states she woke up this morning feeling fine but she does admit that she did not speak with anyone until she talk with her . She denies any weakness. She feels like her symptoms may be improving somewhat but she is definitely not back to normal. She denies any other associated symptoms. Related Data Home Medications Medication Instructions Recorded Confirmed OMEPRAZOLE (PRILOSEC) 10 mg PO QDAY #0 10/06/11 levothyroxine [Synthroid] 75 mcg PO QDAY #0 10/06/11 Allergies Allergy/AdvReac Type Severity Reaction Status Date / Time adhesive Allergy Unknown Unverified 08/10/17 11:44 Review of Systems Constitutional Constitutional: Denies chills, Denies fatigue, Denies fever(s), Denies headache(s) and Denies weakness Eyes Eyes: Denies change in vision ENT Ears, Nose, Mouth, and Throat: Denies abnormal hearing, Denies vertigo, Denies dizziness, Denies headache(s), Denies disequilibrium and Denies sore throat Cardiovascular Cardiovascular: Denies chest pain, Denies rapid heart rate and Denies dyspnea Respiratory Respiratory: Denies cough and Denies dyspnea Gastrointestinal Gastrointestinal: Denies abdominal pain, Denies nausea and Denies vomiting Genitourinary Genitourinary: Denies dysuria Genitourinary: Denies dysuria Musculoskeletal Musculoskeletal: Denies arthralgias, Denies myalgias and Denies tingling Integumentary/Breasts Skin/Breast: Denies rash Neurologic Neurologic: Denies abnormal hearing, Denies abnormal movements, Reports abnormal speech, Denies confusion, Denies vertigo, Denies dizziness, Denies headache(s), Denies lack of coordination, Denies localized weakness, Denies restless legs, Denies tingling, Denies paresthesias, Denies disequilibrium and Denies weakness Psychiatric Psychiatric: Denies anxiety and Denies confusion Endocrine Endocrine: Denies fatigue Hematologic/Lymphatic On Anticoagulants: No Allergic/Immunologic Allergic/Immunologic: Denies urticaria Patient History Medical History (Updated 08/25/20 @ 08:19 by Kobi Pastrana DO) Hypertension Hypothyroid Social History marital status: lives independently: Yes Exam Initial Vital Signs Initial Vital Signs: Vital Signs Pulse Rate 78 08/25/20 07:58 Pulse Oximetry 97 08/25/20 07:58 Const General: cooperative, healthy appearing, comfortable, well developed and well groomed Limitations: mental status not altered HENIN Head: normal to inspection and normocephalic Ears: hearing grossly normal bilaterally Eyes General: appearance normal, both eyes and all related structures Pupils: PERRL EOM: EOM intact bilaterally Chest Chest: No tenderness Resp Effort & Inspection: normal respiratory effort Auscultation: clear to auscultation bilaterally Cardio Rate: regular rate Rhythm: regular rhythm GI Inspection: non-distended Palpation: soft, No firm and No tender Back/Spine/Pelvis Back: normal to inspection Skin Lesions: no lesions Rashes: no rashes Neuro General: patient alert, patient awake and patient oriented x3 Cognition: normal cognition Speech: speech normal Gait: normal gait Motor: muscle tone normal throughout Sensory Exam: no sensory deficits noted Coordination: vshqkg-mq-fsqz test normal Other: See NIH scale Extrem General: normal to inspection, capillary refill normal and No edema Psych Appearance: grossly normal and well kempt Scores GCS Queta coma scale eye opening: Spontaneous Queta coma scale verbal response: Orientated [place] coma scale motor response: Obey commands [place] coma scale total score: 15 NIH Stroke Scale Level of Conciousness: Alert, keenly responsive Ask month/age: Answers both questions correctly. Open/close eyes, close hand: Performs both tasks correctly Best gaze horizontal: Normal Visual roman: No visual loss Facial palsy: Normal symetrical movement Left arm drift: No drift for full 10 sec Right arm drift: No drift for full 10 sec Left leg drift: No drift for full 5 sec Right leg drift: No drift for full 5 sec Limb ataxia: Absent Sensory on face/arms/legs: Normal, no sensory loss Best language: No aphasia, normal Dysarthria: Mild to mod,some slurring Extinction or inattention: No abnormality Total NIH Stroke scale score: 1 Course Orders Ordered: ED Orders 08/25/20 07:45 CT Stroke Stat 08/25/20 07:46 COVID19 -Nasal swab/Pre-Proc Stat Complete Blood Count AUTO DIFF Stat Comprehensive Metabolic Panel Stat Ethanol (ETOH) Stat Lipase Stat Magnesium Stat Partial Thromboplastin Time Stat Prothrombin Time INR Stat Troponin & CK Cardiac Panel Stat EKG-12 Lead Stat 08/25/20 07:47 Thyroid Stimulating Hormone Stat 08/25/20 07:51 CT angio head and neck Stat Sodium Chloride (Normal Saline 0.9%) 1,000 mls @ 125 mls/hr IV CONT JORGE A Last Admin: 08/25/20 08:28 Dose: 125 mls/hr Documented by: Vital Signs Vital signs: Vital Signs - 8 hr 08/25/20 07:58 08/25/20 08:06 08/25/20 08:08 Pulse Rate 78 81 Respiratory Rate Blood Pressure 193/93 H Pulse Oximetry 97 94 98 08/25/20 08:30 Pulse Rate 71 Respiratory Rate 25 H Blood Pressure Pulse Oximetry 98 Medical Decision Making Lab Data Result diagrams: 08/25/20 07:58 08/25/20 07:58 Labs: Lab Results 08/25/20 08/25/20 08/25/20 Range/Units 07:58 07:58 07:58 WBC 6.1 (4.5-11.0) X10^3/uL RBC 4.60 (4.0-5.2) X10^6/uL Hgb 14.2 (12.0-16.0) g/dL Hct 42.3 (36-46) % MCV 92.1 (80-100) fL MCH 31.0 (26-34) PG MCHC 33.7 (30-36) % RDW 13.6 (11.6-14.8) % Plt Count 274 (150-400) X10^3/uL Neut % (Auto) 55.9 (50-75) % Lymph % (Auto) 28.4 (25-40) % [place] % (Auto) 12.0 (3-14) % Eos % (Auto) 2.8 (2-4) % Baso % (Auto) 0.9 (0-2) % Neut # (Auto) 3400 (2388-8206) /uL Lymph # (Auto) 1700 (3846-1750) /uL [place] # (Auto) 700 (0-900) /uL Eos # (Auto) 200 (0-450) /uL Baso # (Auto) 100 (0-100) /uL PT 11.2 (10.1-12.7) SECONDS INR 1.0 (0.9-1.3) APTT 36 D (26.4-36.2) SECONDS Sodium 139 (137-145) mmol/L Potassium 4.2 (3.4-5.1) mmol/L Chloride 107 (98-107) mmol/L Carbon Dioxide 27 (22-32) mmol/L BUN 11 (7-17) mg/dL Creatinine 0.56 (0.52-1.04) mg/dL Estimated GFR > 60.0 (>60) mL/min BUN/Creatinine Ratio 19.6 (6-22) Glucose 102 (80-110) mg/dL Calcium 9.2 (8.4-10.2) mg/dL Magnesium 1.9 (1.6-2.3) mg/dL Total Bilirubin 0.4 (0.2-1.3) mg/dL AST 30 (14-36) IU/L ALT 16 (<35) IU/L Alkaline Phosphatase 171 H (38-126) U/L Total Creatine Kinase 119 (30-135) U/L CK-MB (CK-2) 2.14 (<2.37) ng/mL CK-MB (CK-2) Rel Index 1.8 (1.5-5.0) % Troponin I < 0.012 (0.01-0.034) ng/mL Total Protein 6.9 (6.3-8.2) g/dL Albumin 4.0 (3.5-5.0) g/dL Globulin 2.9 (1.7-4.1) g/dL Albumin/Globulin Ratio 1.4 (1.0-2.8) Lipase 56 (23-300) U/L Ethyl Alcohol < 10 ( - 10) mg/dL Imaging Data CT head/stroke: Radiologist's Impression: [address] [id number] Scan ReportSigned Patient: Nella Vieira [facility]#: [id number]: 9Acct:[id number]/Sex: 79 / FDate of Service: 08/25/20Loc: EDAccession Number: [id number] Procedure: CT Stroke Ordering Provider: Kobi Pastrana D.O. PROCEDURE: CT STROKE INDICATIONS: slurred speach TECHNIQUE: Noncontrast 4.5 mm thick angled axial sections acquired from the foramen magnum to the vertex, with coronal reformats. For radiation dose reduction, the following was used: automated exposure control, adjustment of mA and/or kV according to patient size. COMPARISON: None. FINDINGS: Image quality: Excellent. CSF spaces: Basal cisterns are patent. No extra-axial fluid collections. The ventricles are symmetric in size and shape. Brain: No intracranial bleeds or masses. There is cerebral volume loss for age, with resultant ventricular and sulcal prominence. There are periventricular and deep white matter chronic small vessel ischemic changes. Chronic, small left cerebellar hemisphere lacunar infarct. There is intracranial internal carotid artery atherosclerosis. Skull and face: Calvarium and visualized facial bones appear intact, without suspicious lesions. Sinuses: Visualized sinuses and mastoids are clear. IMPRESSION: 1. No acute intracranial disease process. 2. Findings discussed with Dr. Pastrana on August 25, 2020 at 7:59 a.m. This study fulfills neurological imaging criteria for inclusion or exclusion of acute stroke therapies based on available published neurological guidelines. Dictated by: Nisha Ramirez MD, PhD on 08/25/2020 at 7:58 Approved by: Nisha Ramirez MD, PhD on 08/25/2020 at 8:00 CTA: Radiologist's Impression: [address] [id number] Scan ReportSigned Patient: Nella Vieira [facility]#: [id number]: 9Acct:[id number]/Sex: 79 / FDate of Service: 08/25/20Loc: EDAccession Number: [id number] Procedure: CT angio head and neck Ordering Provider: Kobi Pastrana D.O. PROCEDURE: CT ANGIO HEAD AND NECK INDICATIONS: Slurred speech TECHNIQUE: After the administration of intravenous contrast, 1 mm thick sections acquired from the aortic arch through the [place] of [place]. Post-contrast 4.5 mm thick sections then re-acquired from the foramen magnum to the vertex. 3-dimensional mioiyaq-hnxrfebtz-qeamevrlxy (MIP) and/or volume rendering reformats were acquired of the central intracranial vasculature and neck separately. COMPARISON: [facility], CT, CT STROKE, 08/25/2020, 7:50. [facility], CT, CT ANGIO HEAD AND NECK, 07/30/2018, 9:15. FINDINGS: Image quality: Excellent. BRAIN: CSF spaces: Ventricles are normal in size and shape. Basal cisterns are patent. No extra-axial fluid collections. Brain: No midline shift. No intracranial bleeds or masses. Junior-white matter interface appears intact. Skull and face: Calvarium and facial bones appear intact, without suspicious lesions. Orbits appear normal. Sinuses: Sinuses and mastoids are clear. HEAD CT ANGIOGRAPHY: Anterior circulation: No branch occlusion or flow limiting stenosis. Anterior and posterior communicating arteries are present. Posterior circulation: No branch occlusion or flow-limiting stenosis. NECK CT ANGIOGRAPHY: Carotid system: Normal 3 vessel aortic arch configuration. No occlusion or flow-limiting stenosis of the carotid circulation in the neck. Posterior circulation: Cervical segments of both vertebral arteries are widely patent. Soft tissues: Visualized neck soft tissues demonstrate no suspicious abnormalities. Bones: No suspicious bony lesions. Visualized cervical spine appears normally aligned. IMPRESSION: No hemodynamically significant stenosis of the major intracranial or extracranial arterial circulation. Any quantitative measurements of stenosis were performed using NASCET criteria. Dictated by: Reji Sanchez M.D. on 08/25/2020 at 8:20 Approved by: Reji Sanchez M.D. on 08/25/2020 at 8:25 ECG Data Attestation: I personally reviewed and interpreted this ECG as follows: Prior ECG tracings: not available for review Interpretation: Sinus rhythm Ventricular rate 79 Occasional PVCs Normal QRS QTC [address] T wave changes MDM Narrative Medical decision making narrative: Patient arrived approximately 1-1.5 hours after her noticed her symptoms however her last known normal was technically last evening. She has a NIH score of 1. Patient ambulated to the bathroom here in the emergency department without problems a couple times. Her head CT and CTA of head neck are unremarkable. Patient was hypertensive however her systolic was less than 220 so we will not treat this currently. I did discuss the case with tele stroke who agreed to not give tPA given her last known normal last evening, her age, and her low NIH score. I discussed this with the patient because the last time she had similar symptoms she did receive tPA. We did discuss the risks and benefits and the fact that we thought the risks outweighed the benefits currently. She expressed understanding and agreement with this. Discussed the case with Dr. campos. Will admit for further evaluation and treatment. Critical Care Time Critical Care Time Critical Care Time: Yes Total Critical Care Time: 35 Attestation: The high probability of a clinically significant, sudden or life threatening deterioration of the neurologic system(s) required my full and direct attention, intervention and personal management. The aggregate critical care time was 35 minutes. This time is in addition to time spent performing reported procedures but includes the following: [X] Data Review and interpretation [X] Patient assessment and monitoring of vital signs [X] Documentation [X] Medication orders and management Discharge Plan Departure Patient Disposition: Admitted As Inpatient Clinical Impression: Cerebrovascular accident
[2020-08-25 08:12] LABS: Prothrombin Time 11.2 SECONDS (10.1-12.7)
[2020-08-25 08:15] LABS: PTT Partial Thromboplastin Tim 36 SECONDS (26.4-36.2)
[2020-08-25 08:16] LABS: Add Manual Diff / Slide Review NO; Basophils Absolute Auto 100 /uL (0-100); Basophils Percent Auto 0.9 % (0-2); Eosinophils Absolute Auto 200 /uL (0-450); Eosinophils Percent Auto 2.8 % (2-4); Hematocrit 42.3 % (36-46); Hemoglobin 14.2 g/dL (12.0-16.0); Lymphocytes Absolute Auto 1700 /uL (1100-4500); Lymphocytes Percent Auto 28.4 % (25-40); Mean Corpuscular HGB Conc 33.7 % (30-36); Mean Corpuscular Volume 92.1 fL (80-100); Monocytes Absolute Auto 700 /uL (0-900); Neutrophils Absolute Auto 3400 /uL (1500-7000); Neutrophils Percent Auto 55.9 % (50-75); Platelet Count 274 X10^3/uL (150-400); Red Cell Distribution Width 13.6 % (11.6-14.8); White Blood Cell Count 6.1 X10^3/uL (4.5-11.0)
[2020-08-25 08:17] LABS: Alanine Aminotransferase 16 IU/L (<35); Albumin Globulin Ratio 1.4 (1.0-2.8); Alkaline Phosphatase 171 U/L (38-126); Aspartate Aminotransferase 30 IU/L (14-36); BUN Creatinine Ratio 19.6 (6-22); Bilirubin Total 0.4 mg/dL (0.2-1.3); Blood Urea Nitrogen 11 mg/dL (7-17); Calcium 9.2 mg/dL (8.4-10.2); Carbon Dioxide 27 mmol/L (22-32); Chloride 107 mmol/L (98-107); Creatine Kinase 119 U/L (30-135); Estimated Glomerular Filt Rate > 60.0 mL/min (>60); Ethanol (ETOH) < 10 mg/dL; Globulin 2.9 g/dL (1.7-4.1); Glucose 102 mg/dL (80-110); Lipase 56 U/L (23-300); Magnesium 1.9 mg/dL (1.6-2.3); Potassium 4.2 mmol/L (3.4-5.1); Sodium 139 mmol/L (137-145); Total Protein 6.9 g/dL (6.3-8.2)
[2020-08-25 08:28] LABS: Troponin I < 0.012 ng/mL (0.01-0.034)
[2020-08-25] MEDS: SODIUM CHLORIDE 0.9% 1,000 ML 125 ML IV (08:28)
[2020-08-25 08:32] LABS: CKMB % Relative Index 1.8 % (1.5-5.0); Creatine Kinase MB 2.14 ng/mL (<2.37); HEMOLYSIS < 15 (0-50)
[2020-08-25 08:49] LABS: COVID19 -Nasal RAPID Negative (Negative)
[2020-08-25 08:57] LABS: Thyroid Stimulating Hormone 0.815 uIU/mL (0.47-4.68)
[2020-08-25 09:03] LABS: Bacteria Urine Moderate (10-30); Culture Indicated Urine Specimen Cultured; RBC Urine 0-1/HPF (0-5/HPF); WBC Urine 0-1/HPF (0-5/HPF)
--- NOTE | 2020-08-25 09:12 | PC.NURSE ---
Day shift: Pt on AC unit from ED at approx 0900. She is A&Ox4. Denies any chest pain, pain, or nausea. BP 167/76. HR 67. RA 98%. Does c/o on neck pain of 05/11. Her spouse Rylan in room for support. Oriented to room and call light. Dr Gill aware that she is on unit now. Ok w/ Dr Gill if she has water to drnk. Drank some water and is not coughing. Call light in reach. DOREEN Martinez is going over home meds and admitting Pt at this time. Dr Gill said that Pt would be seen by her after rounds today. WIll continue to monitor Pt and monitor for s/s of TIA.
--- NOTE | 2020-08-25 10:36 | DI.MRI.S_ITS ---
PROCEDURE: MR STROKE Pre- and post-contrast brain MRI, non-contrast brain MR angiogram, pre- and postcontrast neck MR angiogram INDICATIONS: Acute stroke TECHNIQUE: Brain: Noncontrast axial T1 spin echo, axial T2 fast spin echo, sagittal and axial FLAIR, coronal T2 fast spin echo, axial gradient echo, axial diffusion and ADC through the brain. After the administration of contrast, axial 3D VIBE of the cranial vasculature and brain. Brain MRA: Non-contrast 3-D time of flight MR angiogram, with multiple vgffjlt-qvdwvhiwl-bfwdmposfh (MIP) reformats performed. Neck MRA: Axial and sagittal TruFISP through the neck. Coronal dynamic MR angiogram during administration of contrast in the arterial and venous phases, with 3-dimenstional vzrzosv-twbdtszmd-ugoycdtiow (MIP) reformats constructed from subtraction images. COMPARISON: None. FINDINGS: Image quality: Excellent. BRAIN: There is no abnormal extra-axial fluid collection, mass effect, or midline shift. Basilar cisterns and ventricular system are patent. No restricted diffusion or abnormal intracranial susceptibility. The major intracranial vascular flow-related signal voids are maintained. There is cerebral volume loss with passive expansion of the ventricles and extra-axial spaces, along with mild chronic microvascular ischemic change. No gross orbital abnormality. Paranasal sinuses and mastoid air cells are predominantly clear. BRAIN MR ANGIOGRAM: Anterior circulation: Intracranial internal carotid arteries are normal in size and enhancement. The flow within the paired anterior cerebral arteries is normal and symmetric. The flow within the middle cerebral arteries is normal and symmetric. The anterior communicating artery is seen. No stenoses, occlusions, or aneurysms. Posterior circulation: The visualized portions of the vertebral arteries demonstrate normal caliber, and join to form a normal appearing basilar artery. The flow within the posterior cerebral arteries is normal and symmetric. No stenoses, occlusions, or aneurysms. NECK MR ANGIOGRAM: Carotids: Great vessels demonstrate a conventional anatomy as they arise from the aortic arch. The origins of the common carotid arteries appear patent. The calibers and courses of both common carotid arteries are normal. The bifurcation regions appear normal bilaterally. The internal carotid arteries demonstrate normal course and caliber. Posterior circulation: The origins of the vertebral arteries appear patent. More superior portions of both vertebral arteries demonstrate normal course and caliber, and join to form a normal appearing basilar artery. Miscellaneous: Subclavian arteries appear patent. Pre-contrast images through the neck show no soft tissue abnormalities. IMPRESSION: BRAIN MRI: No acute infarct or other acute intracranial finding. Global cerebral volume loss and chronic microvascular ischemic changes, both mild for age. BRAIN MR ANGIOGRAM: No branch occlusion or evidence of hemodynamically significant stenosis of the major intracranial arterial circulation. NECK MR ANGIOGRAM: No occlusion or hemodynamically significant stenosis of the major extracranial arterial circulation. Dictated by: Reji Sanchez M.D. on 08/25/2020 at 16:11 Approved by: Reji Sanchez M.D. on 08/25/2020 at 16:16
[2020-08-25] MEDS: ENOXAPARIN 40 MG/0.4 ML SYRINGE SUBCUT (11:28)
[2020-08-25] MEDS: CLOPIDOGREL 75 MG TABLET PO (11:28)
--- NOTE | 2020-08-25 11:44 | P.HP_ITS ---
History of Present Illness History of Present Illness Date Patient Seen: 08/25/20 Chief complaint: thinks she had a stroke Narrative: The patient is an 79-year-old female with a history of hypertension, hypothyroidism, GERD, who had a stroke 2 years ago. The patient presents with difficulty speaking. She was aphasic ultimately received tPA at [facility] and had complete resolution of her neurological symptoms. The patient has been maintained on an aspirin and statin. She was in her usual state of health until this morning. The patient got up as usual and when she started speaking noted slurred speech and significant aphasia. The patient went to bed and was last known normal before bedtime. She had no weakness, headache, facial droop, or other neurological symptoms. She does report blurred vision out of both eyes. She feels that her words are not as articulate and crisp as usual. Her speech was abnormal on presentation to the emergency room. She fell symptoms got danica r but now feels the speech is different from her baseline. The patient was offered tPA again which she declined. She denies any shortness of breath or chest pain. No nausea vomiting or diarrhea. No joint pains or rashes. The patient does report that she had a ZIO patch after discharge last time which was negative. She had an echo a few months ago which was unremarkable. The patient had a head CT in the emergency room with for acute stroke. She had a CT angio in the emergency department as well which showed no new abnormalities. Patient is admitted to the hospital at this time for further evaluation. Patient History Medical History (Updated 08/25/20 @ 11:47 by Beatriz Gill MD) Bakers cyst GERD (gastroesophageal reflux disease) Hypertension Hypothyroid Family & Social History Family History (Updated 08/25/20 @ 11:47 by Beatriz Gill MD) Father Pancreatic cancer Mother Aneurysm Social History: household members spouse Prior Living Arrangements House lives independently Yes Safety & Behavioral: Feels Safe in Current Yes Environment Been Physically Hurt or No Threatened By a Person Suicidal Ideation Description None Suicide Plan Description No Plan Tobacco & Substance use: Smoking Status Never smoker alcohol intake current alcohol intake frequency holiday/special occasion Substance Use Type does not use Meds Home Medications and Allergies Home Medications Medication Instructions Recorded Confirmed Type levothyroxine [Synthroid] 75 mcg PO QDAY #0 10/06/11 08/25/20 History omeprazole 20 mg PO DAILY #0 10/06/11 08/25/20 History aspirin 81 mg PO DAILY 08/25/20 08/25/20 History losartan 50 mg PO BEDTIME 08/25/20 08/25/20 History Allergies Allergy/AdvReac Type Severity Reaction Status Date / Time adhesive Allergy Unknown Unverified 08/10/17 11:44 Review of Systems Review of Systems ROS: Yes All systems reviewed with the patient and are negative except as otherwise documented Exam Vital Signs (past 8 hours): - 08/25/20 07:58 08/25/20 08:06 08/25/20 08:08 Temperature Pulse Rate 78 81 Respiratory Rate Blood Pressure 193/93 H Pulse Oximetry 97 94 98 08/25/20 08:30 08/25/20 08:32 08/25/20 09:09 Temperature 97.4 F L Pulse Rate 71 74 72 Respiratory Rate 25 H 30 H 16 Blood Pressure 186/101 H 162/78 H Pulse Oximetry 98 98 98 08/25/20 11:14 Temperature 97.2 F L Pulse Rate 64 Respiratory Rate 16 Blood Pressure 165/85 H Pulse Oximetry 97 Oxygen Flow Rate 0 Narrative Exam Narrative: Pleasant female lying in bed in no obvious distress HEENT: Normocephalic atraumatic, extraocular muscles are intact, oropharynx is clear neck is supple without adenopathy Lungs: Clear to auscultation Cardiac exam: Regular rate and rhythm normal S1-S2 Abdomen: Soft nontender nondistended Extremities: No edema Neuro exam: NIH stroke scale of 1 Patient had alert level of consciousness, she was able to answer the month and her age, patient was able to perform 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 There was no limb ataxia, sensory was intact, patient had no aphasia, she did have some dysarthria 1+. Extension and inattention was of normal. The psych exam, no delusions or hallucinations. Objective Labs Result Diagrams: 08/25/20 07:58 08/25/20 07:58 Labs: Laboratory Results - last 24 hr 08/25/20 08/25/20 08/25/20 07:58 07:58 07:58 WBC 6.1 RBC 4.60 Hgb 14.2 Hct 42.3 MCV 92.1 MCH 31.0 MCHC 33.7 RDW 13.6 Plt Count 274 Neut % (Auto) 55.9 Lymph % (Auto) 28.4 [place] % (Auto) 12.0 Eos % (Auto) 2.8 Baso % (Auto) 0.9 Neut # (Auto) 3400 Lymph # (Auto) 1700 [place] # (Auto) 700 Eos # (Auto) 200 Baso # (Auto) 100 PT 11.2 INR 1.0 APTT 36 D Sodium 139 Potassium 4.2 Chloride 107 Carbon Dioxide 27 BUN 11 Creatinine 0.56 Estimated GFR > 60.0 BUN/Creatinine Ratio 19.6 Glucose 102 Calcium 9.2 Magnesium 1.9 Total Bilirubin 0.4 AST 30 ALT 16 Alkaline Phosphatase 171 H Total Creatine Kinase 119 CK-MB (CK-2) 2.14 CK-MB (CK-2) Rel Index 1.8 Troponin I < 0.012 Total Protein 6.9 Albumin 4.0 Globulin 2.9 Albumin/Globulin Ratio 1.4 Lipase 56 TSH Urine RBC Urine WBC Urine Bacteria Ur Culture Indicated? Ethyl Alcohol < 10 SARS-CoV-2 (PCR) 08/25/20 08/25/20 08/25/20 07:58 08:25 08:52 WBC RBC Hgb Hct MCV MCH MCHC RDW Plt Count Neut % (Auto) Lymph % (Auto) [place] % (Auto) Eos % (Auto) Baso % (Auto) Neut # (Auto) Lymph # (Auto) [place] # (Auto) Eos # (Auto) Baso # (Auto) PT INR APTT Sodium Potassium Chloride Carbon Dioxide BUN Creatinine Estimated GFR BUN/Creatinine Ratio Glucose Calcium Magnesium Total Bilirubin AST ALT Alkaline Phosphatase Total Creatine Kinase CK-MB (CK-2) CK-MB (CK-2) Rel Index Troponin I Total Protein Albumin Globulin Albumin/Globulin Ratio Lipase TSH 0.815 Urine RBC 0-1/hpf Urine WBC 0-1/hpf Urine Bacteria Moderate (10-30) H Ur Culture Indicated? Specimen cultured Ethyl Alcohol SARS-CoV-2 (PCR) Negative Assessment & Plan Assessment & Plan narrative: Impression 1. 79-year-old female with a history of stroke which manifested as expressive aphasia, patient received tPA 2 years ago with complete resolution of symptoms. She presented again with recurrent speech abnormality with an associated NIH score of 1. -head CT revealed no intracranial abnormality -CT a of neck: No significant intracranial stenosis -the patient has risk factors to include hypertension, prior stroke. -she continues to be aphasic -patient is awaiting head MRI, and cardiac echo -patient will be started on dual anti-platelet therapy, and high-dose statin at 80 mg a day of Lipitor -patient will have an outpatient ZIO patch to evaluate for possible intermittent arrhythmia -patient will be placed on DVT prophylaxis -PT OT consultation and speech consultation has been obtained 2. Hypertension -will allow for permissive hypertension -will resume losartan tomorrow 3. GERD -continue PPI 4. Hypothyroid -continue L-thyroxine Patient is her is her surrogate decision maker She is a full code will note that her record accordingly Quality VTE Deep Vein Thrombosis/Pulmonary Embolism Present on Admission: No
--- NOTE | 2020-08-25 12:06 | OT.IP.EVAL ---
Past Medical History (Last Updated 08/25/20 @ 11:47 by Beatriz Gill MD) Bakers cyst GERD (gastroesophageal reflux disease) Hypertension Hypothyroid Occupational Therapy Inpatient Evaluation/Re-Eval M1 PT/OT-IP Prior Functional Status Start: 08/25/20 12:11 Freq: NEEDED Status: Active Protocol: Document 08/25/20 12:11 [facility] (Rec: 08/25/20 12:37 [facility] [id number]) Medical Review Prior Functional Status Medical History Reviewed Yes Communication Independent, pt now having some slurred word and occasional word finding problems. Mobility and Gait Pt states able to walk five miles and has been going to outpt Pt for a Woods's cyst. Activities of Daily Living and IADL's Completely with ADl and IADL needs. Social History Household Members spouse Living Arrangements House Number of Floors (Floors) Two Floors Number of Stairs To Enter/Railing? 2 steps down from the garage with right rail to the bedroom room and then 7 steps with right rail, landing and then another 13-14 steps with bilateral rails to get to the living room areas of the home. 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 M2 OT-IP Current Condition Start: 08/25/20 12:11 Freq: Status: Active Protocol: Document 08/25/20 12:11 [facility] (Rec: 08/25/20 12:37 [facility] [id number]) Occupational Therapy Current Condition Current Condition Evaluation Date 08/25/20 Treatment Diagnosis TIA Diagnosis Onset Date 08/25/20 M3 OT- IP Subjective and Pain Start: 08/25/20 12:11 Freq: Status: Active Protocol: Document 08/25/20 12:11 [facility] (Rec: 08/25/20 12:37 [facility] [id number]) OT- Subjective Occupational Therapy Visit Type Type Initial Evaluation Visit Start Time 11:28 Visit Stop Time 12:06 Total Visit Minutes 38 Occupational Therapy Visit Comments Patient Comments Pt agreed to get up for OT eval. Patient/Caregiver Goals TO go home. OT Pain Assessment Pain When Pain Assessed At Rest Pain Present Pain Present Denied Pain M4 OT- IP ADL's Start: 08/25/20 12:11 Freq: Status: Active Protocol: Document 08/25/20 12:11 [facility] (Rec: 08/25/20 12:37 [facility] [id number]) OT [id number] General Evaluation Self-Feeding Ability Independent OT ADL-Grooming General Evaluation Grooming Ability Independent OT ADL-Oral Care General Eval Oral Care Ability Independent OT ADL-Dressing General Eval Lower Body Dressing Ability Independent Comments OT Dressing Comments Pt able to independently spencer/ doff her socks while placing her foot on the bed. OT ADL-Toileting Comments OT Toileting Comments Pt states able to use the bathroom earlier. OT ADL-Bathing Comments OT Bathing Comments NOt performed. M5 OT- IP IADL's Start: 08/25/20 12:11 Freq: Status: Active Protocol: Document 08/25/20 12:11 [facility] (Rec: 08/25/20 12:37 [facility] [id number]) OT-Instrumental Activities of Daily Living Home Safety Awareness Awareness of Need for Assistance at Home Good Awareness Ability to Problem Solve Emergency Able to Problem Solve Situations Medication Management Medication Management No Deficits Identified Money Management Money Management No Deficits Identified Meal Preparation Meal Preparation Comments able to assist for needs. 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 M6 OT- IP Functional Cognition Start: 08/25/20 12:11 Freq: Status: Active Protocol: Document 08/25/20 12:11 [facility] (Rec: 08/25/20 12:37 [facility] [id number]) Cognitive Factors Limiting Selfcare Function Cognitive Ability Level of Alertness Alert Patient Orientation Name,Age,Birthday,Month,Date, Year,Day of Week,Place, Situation Attention Span Ability Capable of Focused Attention, Capable of Sustained Attention Ability to Follow Commands Able to Follow Multi-Step Commands Memory Description Short Term Impaired Safety Awareness No Deficits Noted Problem Solving Ability No deficits Noted Cognitive Tests SLUMS Pt scored 25/30 which normal score for pt's age is 27/30. Pt able to recall 2/5 words after time passed, and able to answer 3/4 questions right after paragraph read. Cognitive Comments Cognitive Assessment Comments Pt states had stroke like episode more than a year ago and that initially had difficulty with her memory but eventually returned. Pt feels she is having trouble with her short term memory but attributes it to getting old. Pt scored 115 seconds on [place] Making Part B which places her at 50% for her age group. Pt' s scored indicates mild to moderate impairments for visual attention, task switching, speed of processing, mental flexibility, and executive functioning. Pt aware that it would be best to drive until feeling better. Pt having word finding trouble of not able to initial identify her wrist when pointing to it. OT- Vision and Hearing OT- Hearing Assessment OT- Hearing Assessment WFL OT- Vision Assessment Vision History Cataracts Visual Acuity WFL Visual Attentiveness WFL Occular Pursuits WFL Visual Convergence WFL Visual Solomon WFL M7 OT- IP Mobility and Balance Start: 08/25/20 12:11 Freq: Status: Active Protocol: Document 08/25/20 12:11 [facility] (Rec: 08/25/20 12:37 [facility] [id number]) OT- Bed Mobility Assessment Supine to Sit Supine to Sit Assist Independent Sit to Supine Sit to Supine Assist Independent Scooting Scooting to Edge of Bed Independent Scooting Up and Down in Bed Independent OT-Transfer Assessment Sit to and From Stand Sit to and from Stand Independent Transfers Transfer Ability Standby Assistance Technique Transfer Destination Bed Transfer Technique Stand Step Pivot Devices Transfer Assistive Devices None Comments Mobility Comments Pt able to mobilize safely in the room with distant SBA. OT- Balance Assessment Sitting Balance and Reactions Static Sitting Balance Ability Normal Dynamic Sitting Balance Ability Normal Standing Balance and Reactions Static Standing Balance Ability Normal M8 OT- IP Objective Assessments Start: 08/25/20 12:11 Freq: Status: Active Protocol: Document 08/25/20 12:11 [facility] (Rec: 08/25/20 12:37 [facility] [id number]) OT Gross Range of Motion Upper Extremity Range of Motion Assessment Within Functional Limits OT Strength Upper Extremity Strength Assessment Within Functional Limits OT- Coordination Assessment Upper Extremity Finger to Nose Test Within Functional Limits Comments Coordination Comments Arthritic changes in hands. OT-Muscle Tone Assessment Muscle Tone WNL Yes OT Sensation Assessment Comments Summary Comments Intact for light touch. M9 OT- IP Assessment and Plan Start: 08/25/20 12:11 Freq: Status: Active Protocol: Document 08/25/20 12:11 [facility] (Rec: 08/25/20 12:37 [facility] [id number]) OT Summary Assessment and Plan Potential Rehabilitation Potential Good Analytic Complexity at Evaluation Low Summary OT Impairments Functional Cognition,Bathing, Activity Tolerance Progress Towards Goals Progressing Toward Goals Assessment Summary Pt low complexity and here due to TIA and main barriers are pt having difficulty with word finding occasionally and decreased short term memory at this time. Pt able to move in the room on her own with no devices and currently goes to outpt PT for rehab for her Woods's cyst. Pt to be given strategies to help improve her memory from OT . Pt looking to go home when medically stable. Goals Dressing Goal Independent Toileting Goal Independent Bathing Goal Independent Toilet Transfer Goal Independent Shower Transfer Goal Independent Days to Meet Goals 2 Frequency of Treatment Frequency Of Treatment Once a Day Treatment Plan OT Treatment Plan ADL Training,Functional Cognition Training,Functional Mobility Discharge Recommendations OT Discharge Recommendations Home with Assistance Transportation Needs at Discharge Private Vehicle
--- NOTE | 2020-08-25 13:58 | PT.IIE ---
Medical History (Last Updated 08/25/20 @ 11:47 by Beatriz Gill MD) Bakers cyst GERD (gastroesophageal reflux disease) Hypertension Hypothyroid Physical Therapy Inpatient Evaluation/Re-Eval M1 PT/OT-IP Prior Functional Status Start: 08/25/20 12:11 Freq: NEEDED Status: Active Protocol: Document 08/25/20 13:58 [facility] (Rec: 08/25/20 14:51 [facility] [id number]) Medical Review Prior Functional Status Medical History Reviewed Yes Communication WNL. Pt currently reporting slurred speech and occasional word finding problems. Mobility and Gait Pt is active. She walks up to five miles at a time and participates in yoga twice weekly. Pt attends outpatient PT related to Woods's cyst. Activities of Daily Living and IADL's Independent with all ADL/IADL' s Social History Household Members spouse Living Arrangements House Number of Floors (Floors) Two Floors Number of Stairs To Enter/Railing? 2 steps down from the garage with right rail to the bedroom level and then 7 steps with right rail, landing and then another 13-14 steps with bilateral rails to get to the living room areas of the home. 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 M2 PT-IP Current Condition Start: 08/25/20 12:13 Freq: NEEDED Status: Active Protocol: Document 08/25/20 13:58 [facility] (Rec: 08/25/20 14:51 AW [id number]) Physical Therapy Current Condition Current Condition Evaluation Date 08/25/20 Treatment Diagnosis TIA vs CVA; dynamic balance deficits Onset Date 08/25/20 M3 PT-IP Subjective Start: 08/25/20 12:13 Freq: NEEDED Status: Active Protocol: Document 08/25/20 13:58 [facility] (Rec: 08/25/20 14:51 AW [id number]) Subjective Physical Therapy Visit Type Type Initial Evaluation Visit Start Time 13:38 Visit Stop Time 13:58 Total Visit Minutes 20 Notes Pt pending MRI this PM 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 Physical Therapy Visit Comments Patient Comments Pt is willing to participate with PT Patient Goals Return home Therapy Pain Assessment Pain When Pain Assessed During Mobility Pain Present Pain Present Denied Pain M4 PT-IP Mobility and Gait Start: 08/25/20 12:13 Freq: NEEDED Status: Active Protocol: Document 08/25/20 13:58 [facility] (Rec: 08/25/20 14:51 AW [id number]) PT-Bed Mobility Assessment Supine to Sit Supine to Sit Independent Scooting Scooting to Edge of Bed Independent PT-Transfer Assessment Sit to and From Stand Sit to and from Stand Independent Equipment Transfer Assistive Device None,Gait Belt Orthotic/Prosthetic Devices or Brace: No Transfers Transfer Destination Bed,Chair,Toilet Transfer Technique Stand Step Pivot Transfer Ability Level of Assist Independent Comments Mobility Comments Pt was lying in the bed as PT arrived. BP 165/88 HR 75. She completed all bed mobility independently and then stood from EOB IND. She walked to the bathroom SBA and transferred without assist. She then walked to the sink and washed her hands with good standing balance. She stepped away from the sink for static balance assessment and then ambulated in the halls SBA to complete Functional Gait Assessment. On return to the room, she transferred to the chair and then back to the bed /supine without assist. BP after activity was 174/96 HR 81. Gait Assessment Gait Gait Assistance Required: Standby Assistance Distance (Feet) 300 Assistive Devices Assistive Device None,Gait Belt Orthotic/Prosthetic Devices or Brace: No Gait Deviations General Gait Pattern Within Normal Limits Factors Limiting Gait Function Factors Limiting Gait Function Decreased Strength Comments Gait Comments Pt completed Functional Gait Assessment with score of 25/30 . Single points were deducted for horizontal head turns, step over obstacle, NBOS, EC, and stairs. Stair Climbing Assessment Evaluation Level of Assist On Stairs Standby Assistance Devices Stair Climbing Assistive Devices Left Railing Technique/Endurance Stair Climbing Direction Ascend and Descend Stair Climbing Technique Step Over Step Number of Steps Climbed 3 Query Text: Stair Climbing Set # Repetitions (reps) 2 PT-Balance Assessment Sitting Balance and Reactions Static Sitting Balance Ability Normal Dynamic Sitting Balance Ability Normal Standing Balance and Reactions Static Standing Balance Ability Good Dynamic Standing Balance Ability Good Device Used no AD Balance Tests Single Limb Standing 5 sec BLE Romberg WNL EO and EC Functional Assessments Functional Tests Functional Gait Assessment 25/30 Other Functional Tests Performed See gait comments for score details M5 PT-IP Objective Assessments Start: 08/25/20 12:13 Freq: NEEDED Status: Active Protocol: Document 08/25/20 13:58 [facility] (Rec: 08/25/20 14:51 AW [id number]) Orientation Orientation/Cognition Level of Alertness Alert Orientation Name,Day of Week,Place, Situation Safety Awareness Understands Safety Issues Memory Description No Deficits Noted Comments Slight slurring of speech noted during assessment. Pt was able to recall 3/3 words after five minutes of distraction. Gross Range of Motion Upper Extremity ROM Assessment Within Functional Limits Lower Extremity ROM Assessment Within Functional Limits Strength Upper Extremity Strength Assessment Within Functional Limits Lower Extremity Strength Assessment Within Functional Limits Comments Strength Comments no unilateral deficit except knee flexion related to Woods' s cyst Coordination Assessment Gross Coordination Gross Coordination WNL Sensation Assessment Sensation Gross Sensation WNL Other Assessments Other Other Assessments Occulomotor and vestibular exam grossly WNL. M6 PT-IP Treatment Start: 08/25/20 12:13 Freq: NEEDED Status: Active Protocol: Document 08/25/20 13:58 AW (Rec: 08/25/20 14:51 AW [id number]) Physical Therapy Treatment Education Education Provided Safety Other Treatments Other Treatment Performed Reviewed signs and symptoms of CVA with pt who was well aware and easily able to teach back. M7 PT-IP Assessment and Plan Start: 08/25/20 12:13 Freq: NEEDED Status: Active Protocol: Document 08/25/20 13:58 AW (Rec: 08/25/20 14:51 AW [id number]) PT Summary Assessment and Plan Potential Status of Condition at Evaluation Stable Summary Assessment Summary Nella is an active 79 yo woman admitted under stroke protocol due to vision and speech difficulty noted within the past 24 hours. She has history of CVA but denies residual deficits. On evaluation, pt is noted to have mild slurring of speech. Occulomotor and vestibular exam were grossly normal. Pt scored 25/30 on Functional Gait Assessment which is higher than norms for her age- matched peers (Walker, 2007). Pt is well aware of signs and symptoms of CVA. No acute or subacute PT needs are identified. PT will discharge orders at this time. Frequency of Treatment Frequency Of Treatment Discharge Recommendations To Nursing Amount of Assist Needed Standby Assistance Discharge Recommendations PT Discharge Recommendations Home Other Discharge Recommendations continue outpatient PT Transportation Needs at Discharge Private Vehicle
--- NOTE | 2020-08-25 16:44 | ST.IPIE ---
Visit Care Team Role Provider Type Carl Alexandre MD Primary Care Provider Physician Specialty: Internal Medicine Address: [address] [place] [address], [id number] Email: [email or web address] Kobi Pastrana DO Emergency Provider Physician Referring Provider Specialty: Emergency Medicine Address: [address] [place] [address], [facility] Email: [email or web address] Beatriz Gill MD Admit Provider Physician Attending Provider Specialty: Internal Medicine Address: [address] [place] [address], [id number] Email: [email or web address] Past Medical History (Last Updated 08/25/20 @ 11:47 by Beatriz Gill MD) Bakers cyst (Medical) GERD (gastroesophageal reflux disease) (Medical) Hypertension (Medical) Hypothyroid (Medical) ST IP 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 Patient History The patient is an 79-year-old female with a history of hypertension, hypothyroidism, GERD, who presents with difficulty speaking. 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 Pt reported she ultimately received tPA at [facility] and had complete resolution of her neurological symptoms. The patient has been maintained on an aspirin and statin. She was in her usual state of health until this morning when she got up as usual and when she started speaking noted slurred speech and significant aphasia. The patient went to bed and was last known normal before bedtime. She had no weakness, headache, facial droop, or other neurological symptoms. She does report blurred vision out of both eyes. She feels that her words are not as articulate and crisp as usual. Her speech was abnormal on presentation to the emergency room. She feels the speech is different from her baseline. Mental Status Mental Status Alert,Responsive,Cooperative Subjective Observations Subjective Pt was in bed in her room. She agreed to a speech evaluation. Oral Motor Lips Function Mild Impairment Observation at rest symmetrical Pucker symmetrical; slow movement Retraction symmetrical; slow movement Tongue Function Mild Impairment Protrusion symmetrical; slow movement Lateralization symmetrical; slow movement Soft Palate Function WFL Symmetry WFL Elevation WFL Sustained Elevation WFL Alternating elevation/relaxation WFL Respiration/Phonation Diadochokinetic Rates P^ Quality Mild Impairment Comments reduced rate T^ Quality Mild Impairment Comments reduced rate K^ Quality Mild Impairment Comments reduced rate P^T^K^ Quality Mild Impairment Comments reduced rate; decreased coordination Speech Intelligibility Awareness/Strategy Use Description Type of awareness/use Uses intermittently Findings Details Motor Speech Function Mild Impairment Type of Impairment mild dysarthria Assessment Details Assessment Pt presented with mild dysarthria characterized by adequate OM strength and ROM. Speed and accuracy of movements were reduced resulting in inaccurate articulator placement and distorted speech sound production. Intelligibility was judged to be 100%; however her speech was slurred. This was most obvious in conversation and connected speech activities. Prognosis Rehabilitation Potential Excellent Recommendations Treatment Recommended Yes: Daily while inpatient Therapy Recommendations Speech therapy to educate pt in strategies to improve speech intelligibility. Oral motor exercises will be recommended to increase speed and accuracy of articulators in speech. Short Term Goals Pt will use strategies provided to increase oral opening, reduce speaking rate and improve speech sound accuracy. Pt will be provided with OM exercises designed to target articulation speed and accuracy to improve articulation accuracy Patient/Family Education Education Described results of evaluation,Patient Understanding,Patient Demonstration
[2020-08-25] MEDS: ATORVASTATIN 20 MG TABLET 80 MG PO (21:30)
[2020-08-26 01:07] VITALS: BP 121/50; PULSE 67; RESP 16; TEMP 36.6; O2SAT 96
--- NOTE | 2020-08-26 01:18 | PC.NURSE ---
patient is alert and oriented. NIH is 1 for some slight slurring of words. Breath sounds CTA with RA sat of 96%. HRR w/telemetry reading of SA w/1st degree AVB. Denies nausea. BT present and abdomen is soft. Denies dysuria, frequency or urgency with urination. Is independent with bed mobility. SBA provided when up to bathroom but gait is steady and denies weakness. Denies pain. Fall risk score is low but patient reminded to call for assistance when wanting to get out of bed; verbalizes understanding.
[2020-08-26 05:00] VITALS: BP 109/74; PULSE 70; RESP 16; TEMP 36.5; O2SAT 96
[2020-08-26] MEDS: LEVOTHYROXINE 75 MCG TABLET PO (05:52)
[2020-08-26] MEDS: PANTOPRAZOLE 20 MG TABLET PO (05:52)
[2020-08-26 08:02] VITALS: BP 144/77; PULSE 64; RESP 16; TEMP 36.6; O2SAT 97
--- NOTE | 2020-08-26 08:19 | PM.DS.1 ---
History of Present Illness History of Present Illness Chief complaint: thinks she had a stroke Narrative: The patient is an 79-year-old female with a history of hypertension, hypothyroidism, GERD, who had a stroke 2 years ago. The patient presents with difficulty speaking. She was aphasic ultimately received tPA at [facility] and had complete resolution of her neurological symptoms. The patient has been maintained on an aspirin and statin. She was in her usual state of health until this morning. The patient got up as usual and when she started speaking noted slurred speech and significant aphasia. The patient went to bed and was last known normal before bedtime. She had no weakness, headache, facial droop, or other neurological symptoms. She does report blurred vision out of both eyes. She feels that her words are not as articulate and crisp as usual. Her speech was abnormal on presentation to the emergency room. She fell symptoms got better but now feels the speech is different from her baseline. The patient was offered tPA again which she declined. She denies any shortness of breath or chest pain. No nausea vomiting or diarrhea. No joint pains or rashes. The patient does report that she had a ZIO patch after discharge last time which was negative. She had an echo a few months ago which was unremarkable. The patient had a head CT in the emergency room with for acute stroke. She had a CT angio in the emergency department as well which showed no new abnormalities. Patient is admitted to the hospital at this time for further evaluation. Discharge Providers Provider Date of admission: 08/25/20 08:46 Discharge Date: 08/26/20 Primary care physician: Carl Alexandre MD Consults: 08/25/20 10:36 Consult to Discharge Planning Routine Comment: Consult to Occupational Therapy Evaluate & Treat Comment: Physician Instructions: Evaluate and treat Consult to Physical Therapy Evaluate & Treat Comment: Physician Instructions: Evaluate and Treat Consult to Speech Therapy Evaluate & Treat Comment: Physician Instructions: Evaluate and treat Discharge provider: Beatriz Gill MD Summary Hospital Course Discharge Diagnosis: 1. Transient ischemic attack 2. Urinary tract infect 3. Hypertension 4.. Hypothyroidism 5. Gastroesophageal reflux disease Hospital Course: The patient was admitted to the hospital after an episode of slurring of her speech. She was seen in consultation by speech therapy who concurred that she had some minimal dysarthria. This morning the patient reports her speech is improved significantly. She feels that it is about 95% back to normal. She has had no weakness numbness tingling or visual changes. The patient underwent head MRI which showed no evidence of an acute ischemic event. Her cardiac echo was unchanged from previous. Her ejection fraction is 60 65%, she has mitral valve prolapse, and mild mitral regurgitation. The patient was started on Plavix in addition to baby aspirin, she is normally on atorvastatin 20 a day and this will be increased to 80 mg per day. She will be referred to outpatient speech therapy. She will also follow-up with her primary care provider Dr. Valencia who will refer her for a ZIO patch again given recurrent symptoms and her known mitral valve disease. Patient is deemed appropriate for discharge and arrangements will be made for her to discharge home. Status at Discharge Cognitive/behavioral status at discharge: oriented Functional status at discharge: independent ambulation Overall status at discharge: patient is progressing back to baseline Time Spent with Patient Time spent: Less than 30 minutes Exam Vital Signs (past 8 hours): - 08/26/20 01:07 08/26/20 05:00 Temperature 97.9 F 97.7 F Pulse Rate 67 70 Respiratory Rate 16 16 Blood Pressure 121/50 L 109/74 Pulse Oximetry 96 96 Oxygen Delivery Method Room Air Oxygen Flow Rate 0 Narrative Exam Narrative: Pleasant female resting comfortably having breakfast in no obvious distress Lungs: Clear to auscultation Cardiac exam: Regular rate and rhythm normal S1-S2 with a 2/6 systolic ejection murmur Abdomen: Soft and nontender Extremity no edema Neuro exam normal except for very minimal changes associated with speech, patient has very mild dysarthria Objective Labs Result Diagrams: 08/25/20 07:58 08/25/20 07:58 Labs: Laboratory Results - last 24 hr 08/25/20 08/25/20 08/25/20 07:58 07:58 07:58 PT 11.2 INR 1.0 APTT 36 D Sodium 139 Potassium 4.2 Chloride 107 Carbon Dioxide 27 BUN 11 Creatinine 0.56 Estimated GFR > 60.0 BUN/Creatinine Ratio 19.6 Glucose 102 Calcium 9.2 Magnesium 1.9 Total Bilirubin 0.4 AST 30 ALT 16 Alkaline Phosphatase 171 H Total Creatine Kinase 119 CK-MB (CK-2) 2.14 CK-MB (CK-2) Rel Index 1.8 Troponin I < 0.012 Total Protein 6.9 Albumin 4.0 Globulin 2.9 Albumin/Globulin Ratio 1.4 Lipase 56 TSH 0.815 Urine RBC Urine WBC Urine Bacteria Ur Culture Indicated? Ethyl Alcohol < 10 SARS-CoV-2 (PCR) 08/25/20 08/25/20 08:25 08:52 PT INR APTT Sodium Potassium Chloride Carbon Dioxide BUN Creatinine Estimated GFR BUN/Creatinine Ratio Glucose Calcium Magnesium Total Bilirubin AST ALT Alkaline Phosphatase Total Creatine Kinase CK-MB (CK-2) CK-MB (CK-2) Rel Index Troponin I Total Protein Albumin Globulin Albumin/Globulin Ratio Lipase TSH Urine RBC 0-1/hpf Urine WBC 0-1/hpf Urine Bacteria Moderate (10-30) H Ur Culture Indicated? Specimen cultured Ethyl Alcohol SARS-CoV-2 (PCR) Negative PFSH Medical History (Updated 08/25/20 @ 11:47 by Beatriz Gill MD) Bakers cyst GERD (gastroesophageal reflux disease) Hypertension Hypothyroid Family History (Updated 08/25/20 @ 11:47 by Beatriz Gill MD) Father Pancreatic cancer Mother Aneurysm Social History marital status: household members: spouse lives independently: Yes Smoking Status: Never smoker alcohol intake: current Discharge Assessment & Plan Assessment and Plan Assessment: 1. Transient ischemic attack 2. Urinary tract infection 3. Hypertension 4. Hypothyroidism 5. GERD Plan of Treatment: 1. Aspirin 81 mg per day plus Plavix 75 mg per day for 21 days 2. Increase atorvastatin to 80 mg daily 3. Follow-up with Dr. Alexandre for referral for repeat ZIO patch 4. Bactrim double strength 1 p.o. b.i.d. for 5 days Discharge Plan Discharge Plan Patient Disposition: Home Discharge orders & Medications Prescriptions: New losartan 50 mg Tablet 50 mg PO DAILY Qty: 30 RF: 0 atorvastatin [Lipitor] 20 mg Tablet 80 mg PO BEDTIME Qty: 30 RF: 0 clopidogrel 75 mg Tablet 75 mg PO DAILY Qty: 21 RF: 0 levothyroxine [Synthroid] 75 mcg Tablet 75 mcg PO DAILY@0600 Qty: 30 RF: 0 sulfamethoxazole-trimethoprim 800-160 mg Tablet 1 tab PO BID Qty: 5 RF: 0 Continued levothyroxine [Synthroid] 75 MCG tablet 75 mcg PO QDAY Qty: 0 RF: 0 omeprazole 20 mg Capsule,Delayed Release(Dr/Ec) 20 mg PO DAILY Qty: 0 RF: 0 aspirin 81 mg Tablet 81 mg PO DAILY RF: 0 losartan 50 mg Tablet 50 mg PO BEDTIME RF: 0 Follow up/Referrals: Carl Alexandre MD [Primary Care Provider] - Discharge Health Status Multidrug resistant organism: No MDRO Diet/Activity/Treatments Diet: Low-sodium Visit Report/Discharge Packet Instructions: DI for Transient Ischemic Attack Discharge Data Primary Care Provider: Carl Alexandre V Quality VTE Deep Vein Thrombosis/Pulmonary Embolism Present on Admission: No
[2020-08-26] MEDS: ASPIRIN EC 81 MG TABLET PO (08:36)
[2020-08-26] MEDS: CLOPIDOGREL 75 MG TABLET PO (08:36)
[2020-08-26] MEDS: ENOXAPARIN 40 MG/0.4 ML SYRINGE SUBCUT (08:37)
[2020-08-26] MEDS: TRIMETH/SULFA 160/800 (DS) TABLET 1 TAB PO (08:38)
[2020-08-26] MEDS: SODIUM CHLORIDE 0.9% FLUSH 10 ML IV (08:40)
--- NOTE | 2020-08-26 09:08 | CM.DANOTE ---
Discharge Planning/Care Management DCP: assessment: case received, EMR reviewed, d/c order noted. Met now with pt. Introduced self and role. Pt is found lying in bed, reading a book. She confirms she feels comfortable with the d/c for today and says her is on his was to pick her up. She is functionally independent at baseline/see template below. She will be following up with her PCP: Dr. Ernesto Alexandre Payer: [facility]. Admission status: in review: per UR DOREEN Gutierrez. Advanced directive, confirm from FAMILY Start: 08/25/20 09:26 Freq: Q24H Status: Active Protocol: Document 08/25/20 09:27 SFP (Rec: 08/25/20 09:27 SFP [id number]) Advance Directive, confirm on record Time 09:27 Person contacted Rylan Copy received No CM Discharge Assessment Start: 08/26/20 09:07 Freq: Status: Active Protocol: Document 08/26/20 09:07 ITV (Rec: 08/26/20 09:08 ITV [id number]) Discharge Planning Assessment Advance Directives? Yes Advance Directives on File No History Provided By Patient,Medical Record Prior Living Arrangements House Household Members spouse Willing to Return to Facility? Document 08/26/20 09:07 ITV (Rec: 08/26/20 09:08 ITV [id number]) Discharge Planning Assessment Advance Directives? Yes Advance Directives on File No History Provided By Patient Prior Living Arrangements House Household Members spouse Willing to Return to Facility? Independent with ADL's Yes Is patient alert and oriented? Yes Discharge Plan Home
--- NOTE | 2020-08-26 09:25 | OT.IP.TRT ---
Occupational Therapy Treatment Note M2 OT-IP Current Condition Start: 08/25/20 12:11 Freq: Status: Active Protocol: Document 08/25/20 12:11 [facility] (Rec: 08/25/20 12:37 [facility] [id number]) Occupational Therapy Current Condition Current Condition Evaluation Date 08/25/20 Treatment Diagnosis TIA Diagnosis Onset Date 08/25/20 M3 OT- IP Subjective and Pain Start: 08/25/20 12:11 Freq: Status: Active Protocol: Document 08/26/20 11:10 [facility] (Rec: 08/26/20 11:18 [facility] [id number]) OT- Subjective Occupational Therapy Visit Type Type Treatment Note Visit Start Time 09:00 Visit Stop Time 09:25 Total Visit Minutes 25 Occupational Therapy Visit Comments Patient Comments Pt wanting to shower at home and has already completed all grooming needs. Pt open to redoing [place] [employer]. Patient/Caregiver Goals TO go home. OT Pain Assessment Pain When Pain Assessed At Rest Pain Present Pain Present Denied Pain M4 OT- IP ADL's Start: 08/25/20 12:11 Freq: Status: Active Protocol: Document 08/25/20 12:11 [facility] (Rec: 08/25/20 12:37 [facility] [id number]) OT SMI-Bsbt-Pnxtibi General Evaluation Self-Feeding Ability Independent OT ADL-Grooming General Evaluation Grooming Ability Independent OT ADL-Oral Care General Eval Oral Care Ability Independent OT ADL-Dressing General Eval Lower Body Dressing Ability Independent Comments OT Dressing Comments Pt able to independently spencer/ doff her socks while placing her foot on the bed. OT ADL-Toileting Comments OT Toileting Comments Pt states able to use the bathroom earlier. OT ADL-Bathing Comments OT Bathing Comments NOt performed. M5 OT- IP IADL's Start: 08/25/20 12:11 Freq: Status: Active Protocol: Document 08/25/20 12:11 [facility] (Rec: 08/25/20 12:37 [facility] [id number]) OT-Instrumental Activities of Daily Living Home Safety Awareness Awareness of Need for Assistance at Home Good Awareness Ability to Problem Solve Emergency Able to Problem Solve Situations Medication Management Medication Management No Deficits Identified Money Management Money Management No Deficits Identified Meal Preparation Meal Preparation Comments able to assist for needs. Medical Records Specialist Medical Records Specialist Comments able to assist for needs. M6 OT- IP Functional Cognition Start: 08/25/20 12:11 Freq: Status: Active Protocol: Document 08/26/20 11:10 [facility] (Rec: 08/26/20 11:18 [facility] [id number]) Cognitive Factors Limiting Selfcare Function Cognitive Comments Cognitive Assessment Comments Pt having more difficulty to remember directions for [place] [employer] and needing more cues to complete the task. Pt scored same time of 115 seconds but needing MODA cues today therefore indicating moderate impairment for task switching, visual attention, speed of precessing, mental flexibility , and executive function. Able to go over memory strategies for pt. Pt states makes lists, use of school financial planner, and has an office in the kitchen to help keep task of things. In addition pt states like to rehearse to help to recall. M7 OT- IP Mobility and Balance Start: 08/25/20 12:11 Freq: Status: Active Protocol: Document 08/25/20 12:11 [facility] (Rec: 08/25/20 12:37 [facility] [id number]) OT- Bed Mobility Assessment Supine to Sit Supine to Sit Assist Independent Sit to Supine Sit to Supine Assist Independent Scooting Scooting to Edge of Bed Independent Scooting Up and Down in Bed Independent OT-Transfer Assessment Sit to and From Stand Sit to and from Stand Independent Transfers Transfer Ability Standby Assistance Technique Transfer Destination Bed Transfer Technique Stand Step Pivot Devices Transfer Assistive Devices None Comments Mobility Comments Pt able to mobilize safely in the room with distant SBA. OT- Balance Assessment Sitting Balance and Reactions Static Sitting Balance Ability Normal Dynamic Sitting Balance Ability Normal Standing Balance and Reactions Static Standing Balance Ability Normal M8 OT- IP Objective Assessments Start: 08/25/20 12:11 Freq: Status: Active Protocol: Document 08/25/20 12:11 [facility] (Rec: 08/25/20 12:37 [facility] [id number]) OT Gross Range of Motion Upper Extremity Range of Motion Assessment Within Functional Limits OT Strength Upper Extremity Strength Assessment Within Functional Limits OT- Coordination Assessment Upper Extremity Finger to Nose Test Within Functional Limits Comments Coordination Comments Arthritic changes in hands. OT-Muscle Tone Assessment Muscle Tone WNL Yes OT Sensation Assessment Comments Summary Comments Intact for light touch. M9 OT- IP Assessment and Plan Start: 08/25/20 12:11 Freq: Status: Active Protocol: Document 08/26/20 11:10 [facility] (Rec: 08/26/20 11:18 [facility] [id number]) OT Summary Assessment and Plan Potential Rehabilitation Potential Good Analytic Complexity at Evaluation Low Summary OT Impairments Functional Cognition,Bathing, Activity Tolerance Progress Towards Goals Progressing Toward Goals Assessment Summary Pt looking to go home today. Pt has good understanding for information given of memory strategies to help improve her memory. Also emphasized to wipe from front to back to help prevent future UTI's, in addition a bidet maybe helpful for her hygiene needs. Pt states her keeps her up at night when he has to go to the bathroom multiple times and has considered sleeping in a different room. Pt to go home today. Treatment Plan OT Treatment Plan Functional Cognition Training Discharge Recommendations OT Discharge Recommendations Home with Assistance Transportation Needs at Discharge Private Vehicle
--- NOTE | 2020-08-26 11:23 | PC.NURSE ---
Day shift: Pt left unit at approx 1130. Paperwork signed and all questions answered. Pt has all personal belongings. scripts sent electronic to Pt's pharmacy. Taken to car (driven home by her spouse) in WC by [employer]. Pt stated she is happy to be going home. Dr Gill is going to order outpatient speech therapy.
--- NOTE | 2020-09-01 18:09 | PC.NURSE ---
Late entry: IV NS 125 mL/hr discontinued at 0905 hrs.
== END 2020-08-26 11:30 | disposition home or self-care (01) ==
LOC: ED 08:19 → AC 09:05
PROVIDERS: Admitting Provider Internal Medicine; Emergency Provider Emergency Medicine; PCP Internal Medicine; Referring Provider Emergency Medicine; Visit Provider Internal Medicine
DX: G45.9 Transient cerebral ischemic attack, unspecified (principal); N39.0 Urinary tract infection, site not specified; I10 Essential (primary) hypertension; K21.9 Gastro-esophageal reflux disease without esophagitis; E03.9 Hypothyroidism, unspecified; Z86.73 Personal history of transient ischemic attack (TIA), and cerebral infarction without residual deficits; Z20.822 Contact with and (suspected) exposure to COVID-19
CPT/HCPCS: 36415; 70450; 70496; 70498; 70548; 70553; 80053; 80320; 81003; 81015; 82550; 82553; 83690; 83735; 84443; 84484; 85025; 85610; 85730; 87077; 87086; 87186; 87635; 92522; 93005; 93306; 96360; 96372; 97129; 97161; 97165; 97530; 99284; 99285; C9803; G0378; J1650

== ENCOUNTER → 2021-08-31 09:10 | Outpatient (CLI) | payer OTHER, SELFPAY ==
[2020-08-25 09:18] VITALS: BMI 24.2
[2021-08-31 10:14] LABS: Hematocrit 42.7 % (36-46); Hemoglobin 14.4 g/dL (12.0-16.0); Mean Corpuscular HGB Conc 33.8 % (30-36); Mean Corpuscular Hemoglobin 30.7 PG (26-34); Mean Corpuscular Volume 90.9 fL (80-100); Platelet Count 248 X10^3/uL (150-400); Red Cell Distribution Width 14.1 % (11.6-14.8)
[2021-08-31 10:49] LABS: Alanine Aminotransferase 27 IU/L (<35); Albumin 3.9 g/dL (3.5-5.0); Albumin Globulin Ratio 1.6 (1.0-2.8); Alkaline Phosphatase 183 U/L (38-126); Aspartate Aminotransferase 35 IU/L (14-36); BUN Creatinine Ratio 23.7 (6-22); Bilirubin Total 0.6 mg/dL (0.2-1.3); Blood Urea Nitrogen 14 mg/dL (7-17); Calcium 8.9 mg/dL (8.4-10.2); Carbon Dioxide 28 mmol/L (22-32); Chloride 108 mmol/L (98-107); Cholesterol 130 mg/dL (140-199); Estimated Glomerular Filt Rate > 60 mL/min (>60); Globulin 2.5 g/dL (1.7-4.1); Glucose 94 mg/dL (80-110); HDL Cholesterol 69 mg/dL (40-60); HEMOLYSIS < 15 (0-50); LDL Cholesterol Calculated 51 mg/dL (<100); Potassium 4.3 mmol/L (3.4-5.1); Sodium 142 mmol/L (137-145); Total Protein 6.4 g/dL (6.3-8.2); Triglycerides 50 mg/dL (35-150)
[2021-08-31 11:51] LABS: TSH w/ Reflex to FT4 0.52 uIU/mL (0.47-4.68)
== END ==
PROVIDERS: PCP Internal Medicine; Referring Provider Internal Medicine; Visit Provider Internal Medicine
DX: E03.9 Hypothyroidism, unspecified (principal); I10 Essential (primary) hypertension; E78.2 Mixed hyperlipidemia; I67.9 Cerebrovascular disease, unspecified
CPT/HCPCS: 36415; 80053; 80061; 84443; 85027

== ENCOUNTER → 2022-03-05 13:41 | Outpatient (CLI) | payer OTHER, SELFPAY ==
[2020-08-25 09:18] VITALS: BMI 24.2
--- NOTE | 2022-03-05 | DI.ECHO.S_ITS ---
[place] [facility]---------+ [facility] +---------+ : : [address] : : : : [id number] : : : : Phone: [phone]+ Echocardiogram Report + + :Name: GIANNA CARRION Study Date: 03/05/2022 Height: 66 in : :[facility] ReadingLocation: Weight: 150 lb : : Gender: Female BSA: 1.8 m2 : :: 1940 Age: 81 yrs BP: 167/97 mmHg: :Reason For Study: Mitral Valve- Regurgitation : :Ordering Physician: FANY, : :DAVID Performed By: Roland Patton : :Referring: DAVID SOARES : + + Interpretation Summary The left ventricle is normal in size. The ejection fraction is estimated to be 65-70%. MV E/A: 0.69 Med Peak E' Romulo: 3.9 cm/sec E/E' med: 16.8 The right ventricle is normal in size and function. Mild to moderate bileaflet mitral valve prolapse present. There is mild to moderate mitral regurgitation. Compared to the prior echo study, there has been no change in the severity of mitral regurgitation. There is mild to moderate tricuspid regurgitation. Compared to the prior echo exam, there has been an increase in TR severity. The right ventricular systolic pressure is estimated to be at least 30 mmHg based on an estimated right atrial pressure of 3 mm Hg. Procedure: A two-dimensional transthoracic echocardiogram with color flow and Doppler was performed. The study quality was technically adequate. Comparison is made with the echocardiogram of 02/16/2021. The patient was in normal sinus rhythm during the exam. Left Ventricle: The left ventricle is normal in size. Proximal septal thickening is noted. There is no thrombus. Left ventricular systolic function is normal. The ejection fraction is estimated to be 65-70%. There are no focal wall motion abnormalities. MV E/A: 0.69 Med Peak E' Romulo: 3.9 cm/sec E/E' med: 16.8. Right Ventricle: The right ventricle is normal in size and function. Atria: Both atria are mildly dilated. The left atrium has mildly decreased in size since the prior echo exam. Right atrial size is normal. The atrial septum is aneurysmal. The interatrial septum grossly appears intact with no obvious evidence for an atrial septal defect. Mitral Valve: Mild to moderate bileaflet mitral valve prolapse present. There is mild to moderate mitral regurgitation. Compared to the prior echo study, there has been no change in the severity of mitral regurgitation. Aortic Valve: The aortic valve is normal in structure and function. The aortic valve is trileaflet. There is no aortic valve stenosis. No aortic regurgitation is present. Tricuspid Valve: The tricuspid valve is normal. There is mild to moderate tricuspid regurgitation. The right ventricular systolic pressure is estimated to be at least 30 mmHg based on an estimated right atrial pressure of 3 mm Hg. Compared to the prior echo exam, there has been an increase in TR severity. Pulmonic Valve: The pulmonic valve is not well visualized. Great Vessels: The aortic root is normal size. The ascending aorta is at the upper limits of normal in size. The IVC is of normal diameter and collapses greater than 50% with a sniff. This suggests a low right atrial pressure of 3 mm Hg. Pericardium/ Pleura There is no pericardial effusion. There is an anterior echo-free space consistent with a fat pad. There is no pleural effusion. MMode/2D Measurements & Calculations LVIDd: 5.0 cm LVOT diam: 2.0 cm LVIDs: 3.4 cm Ao root diam: 3.5 cm FS: 32.0 % asc Aorta Diam: 3.7 cm IVSd: 1.1 cm LVPWd: 1.0 cm LV melgoza. diameter/BSA (cm/m^2): 2.8 LV sys. diameter/BSA (cm/m^2): 1.9 LA dimension: 3.4 cm RA long axis: 5.6 cm LA A2 area: 19.6 cm2 RA area: 16.5 cm2 LA A4 area: 20.3 cm2 RA vol: 41.3 ml LA length (vol): 4.9 cm RA : 23.3 ml/m2 LA vol: 68.8 ml LA vol index: 38.9 ml/m2 LVLd ap2: 7.6 cm TAPSE_phl: 2.6 cm Doppler Measurements & Calculations MV E max romulo: 65.1 cm/sec TR max romulo: 259.0 cm/sec MV A max romulo: 94.7 cm/sec TR max P.8 mmHg MV E/A: 0.69 Med Peak E' Romulo: 3.9 cm/sec E/E' med: 16.8 Lat Peak E' Romulo: 4.4 cm/sec E/E' lat: 15.0 E/e' average: 15.9 MV dec time: 0.23 sec MV P1/2t-pr_phl: 66.0 msec Reading Physician:10:53 AM
== END ==
PROVIDERS: PCP Internal Medicine; Referring Provider Internal Medicine Cardiovascular Disease; Visit Provider Internal Medicine Cardiovascular Disease
DX: I08.1 Rheumatic disorders of both mitral and tricuspid valves (principal)
CPT/HCPCS: 93306

== ENCOUNTER → 2022-09-07 08:04 | Outpatient (CLI) | payer OTHER, SELFPAY ==
[2020-08-25 09:18] VITALS: BMI 24.2
[2022-09-07 09:26] LABS: Aspartate Aminotransferase 25 IU/L (14-36); BUN Creatinine Ratio 18.9 (6-22); Blood Urea Nitrogen 10 mg/dL (7-17); Calcium 8.7 mg/dL (8.4-10.2); Carbon Dioxide 29 mmol/L (22-32); Chloride 105 mmol/L (98-107); Cholesterol 135 mg/dL (140-199); Estimated Glomerular Filt Rate > 60 mL/min (>60); Glucose 98 mg/dL (80-110); HDL Cholesterol 54 mg/dL (40-60); HEMOLYSIS < 15 (0-50); LDL Cholesterol Calculated 69 mg/dL (<100); Potassium 4.6 mmol/L (3.4-5.1); Sodium 137 mmol/L (137-145); Triglycerides 62 mg/dL (35-150)
[2022-09-07 09:55] LABS: TSH w/ Reflex to FT4 0.16 uIU/mL (0.47-4.68)
[2022-09-07 10:51] LABS: Free T4, Direct Thyroxine 1.14 ng/dL (0.78-2.19)
== END ==
PROVIDERS: PCP Internal Medicine; Referring Provider Internal Medicine; Visit Provider Internal Medicine
DX: E03.9 Hypothyroidism, unspecified (principal); I10 Essential (primary) hypertension; E78.2 Mixed hyperlipidemia
CPT/HCPCS: 36415; 80048; 80061; 84439; 84443; 84450

== ENCOUNTER → 2022-09-13 07:30 | Outpatient (CLI) | payer OTHER, SELFPAY ==
[2020-08-25 09:18] VITALS: BMI 24.2
[2022-09-13 09:50] LABS: TSH w/ Reflex to FT4 0.61 uIU/mL (0.47-4.68)
== END ==
PROVIDERS: PCP Internal Medicine; Referring Provider Internal Medicine; Visit Provider Internal Medicine
DX: R79.89 Other specified abnormal findings of blood chemistry (principal)
CPT/HCPCS: 36415; 84443

== ENCOUNTER → 2023-09-14 08:30 | Outpatient (CLI) | payer OTHER, SELFPAY ==
[2023-06-07 09:15] VITALS: BMI 24.2
[2023-09-14 09:23] LABS: Aspartate Aminotransferase 35 IU/L (14-36); BUN Creatinine Ratio 18.5 (6-22); Blood Urea Nitrogen 10 mg/dL (7-17); Calcium 9.1 mg/dL (8.4-10.2); Carbon Dioxide 28 mmol/L (22-32); Chloride 108 mmol/L (98-107); Cholesterol 131 mg/dL (140-199); Estimated Glomerular Filt Rate > 60 mL/min (>60); Glucose 98 mg/dL (80-110); HDL Cholesterol 71 mg/dL (40-60); HEMOLYSIS < 15 (0-50); LDL Cholesterol Calculated 47 mg/dL (<100); Potassium 4.1 mmol/L (3.4-5.1); Sodium 140 mmol/L (137-145); Triglycerides 66 mg/dL (35-150)
[2023-09-14 09:55] LABS: TSH w/ Reflex to FT4 0.76 uIU/mL (0.47-4.68)
== END ==
PROVIDERS: PCP Internal Medicine; Referring Provider Internal Medicine; Visit Provider Internal Medicine
DX: I10 Essential (primary) hypertension (principal); E78.2 Mixed hyperlipidemia; E03.9 Hypothyroidism, unspecified
CPT/HCPCS: 36415; 80048; 80061; 84443; 84450

== ENCOUNTER → 2024-09-17 12:01 | Outpatient (CLI) | payer OTHER, SELFPAY ==
[2023-06-07 09:15] VITALS: BMI 24.2
[2024-09-17 12:56] LABS: Aspartate Aminotransferase 32 IU/L (14-36); BUN Creatinine Ratio 22.2 (6-22); Blood Urea Nitrogen 12 mg/dL (7-17); Calcium 9.1 mg/dL (8.4-10.2); Carbon Dioxide 26 mmol/L (22-32); Chloride 106 mmol/L (98-107); Cholesterol 136 mg/dL (140-199); Estimated Glomerular Filt Rate > 60 mL/min (>60); Glucose 104 mg/dL (70-99); HDL Cholesterol 71 mg/dL (40-60); HEMOLYSIS < 15 (0-50); LDL Cholesterol Calculated 53 mg/dL (<100); Potassium 4.2 mmol/L (3.4-5.1); Sodium 138 mmol/L (137-145); Triglycerides 59 mg/dL (35-150)
[2024-09-17 13:23] LABS: TSH w/ Reflex to FT4 0.59 uIU/mL (0.47-4.68)
== END ==
PROVIDERS: PCP Internal Medicine; Referring Provider Internal Medicine; Visit Provider Internal Medicine
DX: I10 Essential (primary) hypertension (principal); E78.2 Mixed hyperlipidemia
CPT/HCPCS: 36415; 80048; 80061; 84443; 84450